=== PATIENT | female | born 1945 ===

== ENCOUNTER 2016-12-25 18:09 | Observation (INO) | payer OTHER ==
[2016-12-25 18:15] VITALS: BMI 28.1
[2016-12-25] MEDS ORDERED: Sodium Chloride 0.9% 1,000 ML IV STA (18:43)
[2016-12-25 19:12] LABS: ADD MANUAL DIFF? NO
[2016-12-25 19:19] LABS: URINE BILIRUBIN NEGATIVE (NEGATIVE); URINE BLOOD NEGATIVE (NEGATIVE); URINE GLUCOSE (UA) NEGATIVE (NEGATIVE); URINE KETONE NEGATIVE (NEGATIVE); URINE LEUKOCYTE ESTERASE NEGATIVE Leu/uL (NEGATIVE); URINE PROTEIN NEGATIVE mg/dL (<30 mg/dL); URINE UROBILINOGEN 0.2 E.U./dL (<1 E.U./dL)
[2016-12-25] MEDS ORDERED: Iohexol 350 MG/100 ML VIAL ONE (19:21)
[2016-12-25] MEDS ORDERED: Iohexol 240 (50 ml) ONE (19:21)
[2016-12-25 19:23] LABS: ALB/GLOB RATIO 1.2 (1.1-1.8); ALKALINE PHOSPHATASE 48 U/L (38-133); ALT/SGPT 25 U/L (7-56); AMYLASE 95 U/L (35-125); AST/SGOT 31 U/L (15-39); BILIRUBIN,TOTAL 0.3 mg/dL (0.2-1.3); BLOOD UREA NITROGEN 15 mg/dL (7-21); CALCIUM 9.4 mg/dL (8.4-10.5); CARBON DIOXIDE 24 mmol/L (21-33); CHLORIDE 95 mmol/L (98-107); GFR AFRICAN-AMERICAN > 60; GLUCOSE,RANDOM 92 mg/dL (70-110); LIPASE 46 U/L (23-300); POTASSIUM 4.4 mmol/L (3.6-5.0); SODIUM 125 mmol/L (132-148); URINE APPEARANCE CLEAR (CLEAR); URINE COLOR YELLOW (YELLOW)
[2016-12-25 19:24] LABS: BASO # 0.02 K/mm3 (0.0-2.0); BASO % 0.2 % (0.0-3.0); EOS # 0.1 (0.0-0.7); EOS % 1.2 % (1.5-5.0); GRAN # 4.94 (1.4-6.5); GRAN % 59.5 % (50.0-68.0); HEMATOCRIT 35.8 % (36.0-48.0); LYMPH # 2.4 (1.2-3.4); LYMPH % 29.3 % (22.0-35.0); MEAN CORPUSCULAR HGB CONC 35.2 g/dl (31.0-37.0); MEAN PLATELET VOLUME 9.3 fl (7.0-11.0); MONO # 0.8 (0.1-0.6); MONO % 9.8 % (1.0-6.0); PLATELET COUNT 275 10^3/uL (120.0-450.0); RED CELL DISTRIBUTION WIDTH 12.2 % (11.5-14.5); WHITE BLOOD COUNT 8.3 10^3/ul (4.5-11.0)
--- NOTE | 2016-12-25 20:28 | RAD ---
HISTORY: abd pain COMPARISON: Chest x-ray performed 11/18/15 TECHNIQUE: Chest, one view. FINDINGS: LUNGS: No focal consolidation. Please note that chest x-ray has limited sensitivity for the detection of pulmonary masses. PLEURA: No significant pleural effusion identified. No definite pneumothorax . CARDIOVASCULAR: Heart size appears top normal. Lead tortuous aorta. OSSEOUS STRUCTURES: Degenerative changes of the spine. VISUALIZED UPPER ABDOMEN: Elevation of the right hemidiaphragm. OTHER FINDINGS: None. IMPRESSION: No focal consolidation, significant pleural effusion, or definite pneumothorax identified. Additional findings as above.
--- NOTE | 2016-12-25 21:21 | ED PDOC ---
Arrival/HPI - General Chief Complaint: GI Problem Time Seen by Provider: 12/25/16 18:30 Historian: Patient, Family - History of Present Illness Narrative History of Present Illness (Text): 12/25/16 21:18 71-year-old female presents today with a six-day history of constipation and abdominal pain. Patient describes sharp crampy diffuse abdominal pain worsening over the past 4 days. Denies vomiting or diarrhea. No chest pain or shortness of breath. Patient states she has been taking Percocet for her knee pain. She denies fevers or chills. Denies urinary symptoms. No vaginal bleeding. No other complaints. Time/Duration: Other (6 days) Symptom Onset: Gradual Symptom Course: Intermittent Quality: Stabbing, Cramping Severity Level: 6 Past Medical History - Provider Review Nursing Documentation Reviewed: Yes - Travel History Have you recently traveled outside [place] w/in the past 3 mons?: No - Infectious Disease Hx of Infectious Diseases: None - Tetanus Immunization Tetanus Immunization: Unknown - Reproductive Menopause: Yes - Cardiac Hx Cardiac Disorders: Yes Hx Hypertension: Yes - Pulmonary Hx Respiratory Disorders: Yes Hx Asthma: Yes Hx Pneumonia: Yes - Neurological Hx Neurological Disorder: Yes Hx Dizziness: Yes Hx Migraine: Yes - HEENT Hx HEENT Disorder: No - Renal Hx Renal Disorder: No - Endocrine/Metabolic Hx Endocrine Disorders: No - Hematological/Oncological Hx Blood Disorders: No - Integumentary Hx Dermatological Disorder: No - Musculoskeletal/Rheumatological Hx Musculoskeletal Disorders: No Hx Falls: No - Gastrointestinal Hx Gastrointestinal Disorders: No - Genitourinary/Gynecological Hx Genitourinary Disorders: No - Psychiatric Hx Psychophysiologic Disorder: Yes Hx Anxiety: Yes Hx Depression: Yes Hx Substance Use: No - Surgical History Hx Section: Yes - Anesthesia Hx Anesthesia: Yes Hx Anesthesia Reactions: No Hx Malignant Hyperthermia: No - Suicidal Assessment Feels Threatened In Home Enviroment: No Family/Social History - Physician Review Nursing Documentation Reviewed: Yes Family/Social History: Unknown Family HX Smoking Status: Never Smoked Hx Alcohol Use: No Hx Substance Use: No Hx Substance Use Treatment: No Allergies/Home Meds Allergies/Adverse Reactions: Allergies No Known Allergies Allergy (Verified 12/25/16 18:15) Home Medications: Home Meds Medication Instructions Recorded Confirmed Spironolactone [Aldactone] 25 mg PO DAILY 09/02/15 12/25/16 amLODIPine [Norvasc] 10 mg PO DAILY 11/09/15 12/25/16 Review of Systems - Review of Systems Constitutional: absent: Fatigue, Fevers Respiratory: absent: SOB, Cough Cardiovascular: absent: Chest Pain, Palpitations Gastrointestinal: Abdominal Pain, Constipation. absent: Diarrhea, Nausea, Vomiting Genitourinary Female: absent: Dysuria, Frequency, Hematuria Musculoskeletal: absent: Arthralgias, Back Pain, Neck Pain Skin: absent: Rash, Pruritis Neurological: absent: Headache, Dizziness Psychiatric: absent: Anxiety, Depression Physical Exam Vital Signs Reviewed: Yes Vital Signs Temp Pulse Resp BP Pulse Ox 12/25/16 22:25 98.7 F 70 17 138/79 100 12/25/16 20:42 69 16 133/75 97 12/25/16 18:16 98.2 F 76 19 125/83 96 Temperature: Afebrile Blood Pressure: Normal Pulse: Regular Respiratory Rate: Normal Appearance: Positive for: Well-Appearing, Non-Toxic, Comfortable Pain Distress: None Mental Status: Positive for: Alert and Oriented X 3 - Systems Exam Head: Present: Atraumatic Mouth: Present: Moist Mucous Membranes Neck: Present: Normal Range of Motion Respiratory/Chest: Present: Clear to Auscultation, Good Air Exchange. No: Respiratory Distress, Accessory Muscle Use Cardiovascular: Present: Regular Rate and Rhythm, Normal S1, S2. No: Murmurs Abdomen: Present: Tenderness (minimal diffuse tenderness), Normal Bowel Sounds. No: Distention, Peritoneal Signs, Rebound, Guarding Back: Present: Normal Inspection. No: CVA Tenderness, Midline Tenderness, Paraspinal Tenderness Upper Extremity: Present: Normal ROM Lower Extremity: Present: Normal ROM Neurological: Present: GCS=15, Speech Normal Skin: Present: Warm, Dry, Normal Color. No: Rashes Psychiatric: Present: Alert, Oriented x 3 Medical Decision Making ED Course and Treatment: 12/25/16 21:22 Patient is nontoxic well appearing with stable vital signs presenting with severe abdominal pain CBC wnl CMP: NA:125 Amylase wnl Lipase wnl Urinalysis wnl cxr:FINDINGS: LUNGS: No focal consolidation. Please note that chest x-ray has limited sensitivity for the detection of pulmonary masses. PLEURA: No significant pleural effusion identified. No definite pneumothorax . CARDIOVASCULAR: Heart size appears top normal. Lead tortuous aorta. OSSEOUS STRUCTURES: Degenerative changes of the spine. VISUALIZED UPPER ABDOMEN: Elevation of the right hemidiaphragm. OTHER FINDINGS: None. IMPRESSION: No focal consolidation, significant pleural effusion, or definite pneumothorax identified. Additional findings as above. CAT scan: FINDINGS: Lower thorax: No acute findings. ABDOMEN: Liver: Unremarkable. No mass. Gallbladder and bile ducts: Unremarkable. No calcified stones. No ductal dilation. Pancreas: Unremarkable. No mass. No ductal dilation. Spleen: Unremarkable. No splenomegaly. Adrenals: Small left adrenal nodule measuring 10 mm. Kidneys and ureters: Unremarkable. No solid mass. No hydronephrosis. Stomach and bowel: Mild stool throughout the colon. No obstruction. No mucosal thickening. Appendix: A normal appendix is seen. PELVIS: Bladder: Unremarkable. No mass. Reproductive: Unremarkable as visualized. ABDOMEN and PELVIS: Intraperitoneal space: Unremarkable. No free air. No significant fluid collection. Bones/joints: Facet arthropathy of the lower lumbar spine with grade 1 anterolisthesis of L5 relative to S1. No acute fracture. No dislocation. Soft tissues: Unremarkable. Vasculature: Unremarkable. No abdominal aortic aneurysm. Lymph nodes: Unremarkable. No enlarged lymph nodes. IMPRESSION: 1. 10 mm left adrenal nodule. 2. Facet arthropathy of the lower lumbar spine with grade 1 anterolisthesis of L5 relative to S1. 3. Otherwise negative CT abdomen/pelvis. No acute process is identified. Patient reassessment: pt non toxic; pain improved; still no bowel movement. Discussed all results with patient in depth case discussed with dr. de oliveira; accepts observational status admission for hyponatremia and adrenal mass Impression: Abdominal pain, hyponatremia, adrenal mass observational status to med/surg. dr. Bhagat. - Lab Interpretations Lab Results: 12/25/16 19:05 12/25/16 19:05 Lab Results 12/25/16 19:05: Urine Color Yellow, Urine Appearance Clear, Urine pH 7.0, Ur Specific [place] <= 1.005, Urine Protein Negative, Urine Glucose (UA) Negative, Urine Ketones Negative, Urine Blood Negative, Urine Nitrate Negative, Urine Bilirubin Negative, Urine Urobilinogen 0.2, Ur Leukocyte Esterase Negative 12/25/16 19:05: WBC 8.3 D, RBC 4.07, Hgb 12.6, Hct 35.8 L, MCV 88.0, MCH 31.0, MCHC 35.2, RDW 12.2, Plt Count 275, MPV 9.3, Gran % 59.5, Lymph % (Auto) 29.3, [place] % (Auto) 9.8 H, Eos % (Auto) 1.2 L, Baso % (Auto) 0.2, Gran # 4.94, Lymph # 2.4, [place] # 0.8 H, Eos # 0.1, Baso # 0.02 12/25/16 19:05: Sodium 125 L, Potassium 4.4, Chloride 95 L, Carbon Dioxide 24, Anion Gap 10, BUN 15, Creatinine 0.8, Est GFR ( Amer) > 60, Est GFR (Non- Af Amer) > 60, Random Glucose 92, Calcium 9.4, Total Bilirubin 0.3, AST 31, ALT 25, Alkaline Phosphatase 48, Total Protein 7.0, Albumin 3.8, Globulin 3.2, Albumin/Globulin Ratio 1.2, Amylase 95, Lipase 46 - RAD Interpretation Radiology Orders: 12/25/16 18:40 CHEST PORTABLE [RAD] Stat 12/25/16 19:06 ABD PELVIS PO & IV CONTRAST [CT] Stat - Medication Orders Current Medication Orders: Discontinued Medications Sodium Chloride (Sodium Chloride 0.9%) 1,000 mls @ 999 mls/hr IV .Q1H1M STA Stop: 12/25/16 19:43 Last Admin: 12/25/16 19:25 Dose: 999 mls/hr Iohexol (Omnipaque 240 (50 Ml)) Confirm Administered Dose 100 ml .ROUTE .STK- MED ONE Stop: 12/25/16 19:22 Iohexol (Omnipaque 350 100 Ml) Confirm Administered Dose 350 mg .ROUTE .STK-MED ONE Stop: 12/25/16 19:22 Ketorolac Tromethamine (Toradol) 30 mg IVP STAT STA Stop: 12/25/16 21:18 Disposition/Present on Arrival - Present on Arrival Any Indicators Present on Arrival: No History of DVT/PE: No History of Uncontrolled Diabetes: No Urinary Catheter: No History of Decub. Ulcer: No History Surgical Site Infection Following: None - Disposition Have Diagnosis and Disposition been Completed?: Yes Diagnosis: Hyponatremia, Abdominal pain, Adrenal nodule Disposition: Transfer [facility] Disposition Time: 23:30 Patient Plan: Observation Condition: FAIR Referrals: Lashawn Vela DO [Primary Care Provider] - Follow up with primary
--- NOTE | 2016-12-25 23:35 | CP.PCM.HP ---
History of Present Illness - History of Present Illness History of Present Illness: CC: abdominal pain 68 years old upper sorbian speaking female with history of hypertension stating she was feeling like she was having abdominal pain earlier today, and was having trouble going to the bathroom. However, once in the emergency room, after given some time, she had a bowel movement and her abdominal pain got better. She denies any fevers/chills, VELA, CP, current abdominal pain, any N/V/D, dysuria/ freq/urg, or lower extremity pain/swellling, problems walking, problems with mentation, anyone noticing she was acting strangely. PMH: HTN, Asthma Allergy: NKDA Meds: Amlodipine, Spironolactone Hospitalization: 4 years ago [place] [facility] [place] Family History: denies Social History: Never smoked, does not drink, does not use drugs. Lives alone. 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 Surgical History: C/S in the past Present on Admission - Present on Admission Any Indicators Present on Admission: No History of DVT/PE: No History of Uncontrolled Diabetes: No Urinary Catheter: No Decubitus Ulcer Present: No Past Patient History - Infectious Disease Hx of Infectious Diseases: None - Tetanus Immunizations Tetanus Immunization: Unknown - Past Social History Smoking Status: Never Smoked - CARDIAC Hx Cardiac Disorders: Yes Hx Hypertension: Yes - PULMONARY Hx Respiratory Disorders: Yes Hx Asthma: Yes Hx Pneumonia: Yes - NEUROLOGICAL Hx Neurological Disorder: Yes Hx Dizziness: Yes Hx Migraine: Yes - HEENT Hx HEENT Problems: No - RENAL Hx Chronic Kidney Disease: No - ENDOCRINE/METABOLIC Hx Endocrine Disorders: No - HEMATOLOGICAL/ONCOLOGICAL Hx Blood Disorders: No - INTEGUMENTARY Hx Dermatological Problems: No - MUSCULOSKELETAL/RHEUMATOLOGICAL Hx Musculoskeletal Disorders: No Hx Falls: No - GASTROINTESTINAL Hx Gastrointestinal Disorders: No - GENITOURINARY/GYNECOLOGICAL Hx Genitourinary Disorders: No - PSYCHIATRIC Hx Psychophysiologic Disorder: Yes Hx Anxiety: Yes Hx Depression: Yes Hx Substance Use: No - SURGICAL HISTORY Hx Section: Yes - ANESTHESIA Hx Anesthesia: Yes Hx Anesthesia Reactions: No Hx Malignant Hyperthermia: No Meds Allergies/Adverse Reactions: Allergies Allergy/AdvReac Type Severity Reaction Status Date / Time No Known Allergies Allergy Verified 12/25/16 18:15 Physical Exam - Constitutional Appears: Well, Non-toxic - Head Exam Head Exam: ATRAUMATIC, NORMAL INSPECTION - Eye Exam Eye Exam: EOMI - ENT Exam ENT Exam: Mucous Membranes Moist - Neck Exam Neck exam: Positive for: Full Rom. Negative for: Lymphadenopathy - Respiratory Exam Respiratory Exam: Clear to Auscultation Bilateral, NORMAL BREATHING PATTERN. absent: Rales, Rhonchi, Wheezes - Cardiovascular Exam Cardiovascular Exam: REGULAR RHYTHM, +S1, +S2 - GI/Abdominal Exam GI & Abdominal Exam: Normal Bowel Sounds, Soft - Rectal Exam Rectal Exam: absent: Deferred - Extremities Exam Extremities exam: Positive for: full ROM, normal inspection. Negative for: calf tenderness, pedal edema - Back Exam Back exam: NORMAL INSPECTION. absent: CVA tenderness (L), CVA tenderness (R) - Neurological Exam Neurological exam: Alert, CN II-XII Intact, Oriented x3, Reflexes Normal - Psychiatric Exam Psychiatric exam: Normal Affect, Normal Mood Results - Vital Signs Recent Vital Signs: Last Vital Signs Temp 98.7 F 12/25/16 22:25 Pulse 70 12/25/16 22:25 Resp 17 12/25/16 22:25 BP 138/79 12/25/16 22:25 Pulse Ox 100 12/25/16 22:25 - Labs Result Diagrams: 12/25/16 19:05 12/25/16 19:05 Labs: Laboratory Results - last 24 hr 12/25/16 12/25/16 12/25/16 19:05 19:05 19:05 WBC 8.3 D RBC 4.07 Hgb 12.6 Hct 35.8 L MCV 88.0 MCH 31.0 MCHC 35.2 RDW 12.2 Plt Count 275 MPV 9.3 Gran % 59.5 Lymph % (Auto) 29.3 [place] % (Auto) 9.8 H Eos % (Auto) 1.2 L Baso % (Auto) 0.2 Gran # 4.94 Lymph # 2.4 [place] # 0.8 H Eos # 0.1 Baso # 0.02 Sodium 125 L Potassium 4.4 Chloride 95 L Carbon Dioxide 24 Anion Gap 10 BUN 15 Creatinine 0.8 Est GFR ( Amer) > 60 Est GFR (Non-Af Amer) > 60 Random Glucose 92 Calcium 9.4 Total Bilirubin 0.3 AST 31 ALT 25 Alkaline Phosphatase 48 Total Protein 7.0 Albumin 3.8 Globulin 3.2 Albumin/Globulin Ratio 1.2 Amylase 95 Lipase 46 Urine Color Yellow Urine Appearance Clear Urine pH 7.0 Ur Specific [place] <= 1.005 Urine Protein Negative Urine Glucose (UA) Negative Urine Ketones Negative Urine Blood Negative Urine Nitrate Negative Urine Bilirubin Negative Urine Urobilinogen 0.2 Ur Leukocyte Esterase Negative Assessment & Plan - Assessment and Plan (Free Text) Assessment: 71yo F admitted for asymptomatic hyponatremia w/ incidental mass in the left adrenal gland Hyponatremia w/ incidental adrenal mass 10 mm left adrenal nodule. -patient is on normal saline at 100ml/hr -will re-check sodium; currently asymptomatic -f/u urine 24 hour cortisol, serum cortisol -patient has history of HTN; on two medications Proph Pepcid Heart Healthy Diet SCD and OOB encouraged Case Discussed with Dr. Noreen Goodrich PGY1 Night Float Decision To Admit - Pt Status Changed To: Hospital Disposition Of: Observation - . Bed Request Type: Med/Surg Admitting Physician: Aubrey Sorto MD
[2016-12-25] MEDS ORDERED: Albuterol 0.083% Inhal Sol (2.5 mg/3 mL) UD IH PRN (23:36)
[2016-12-26 01:47] VITALS: RESP 20
[2016-12-26 08:01] LABS: ADD MANUAL DIFF? NO
[2016-12-26 08:24] LABS: ALB/GLOB RATIO 1.1 (1.1-1.8); ALKALINE PHOSPHATASE 43 U/L (38-133); ALT/SGPT 29 U/L (7-56); AST/SGOT 35 U/L (15-39); BILIRUBIN,TOTAL 0.2 mg/dL (0.2-1.3); BLOOD UREA NITROGEN 10 mg/dL (7-21); CALCIUM 8.9 mg/dL (8.4-10.5); CARBON DIOXIDE 27 mmol/L (21-33); CHLORIDE 102 mmol/L (98-107); GFR AFRICAN-AMERICAN > 60; GLUCOSE,RANDOM 84 mg/dL (70-110); POTASSIUM 3.7 mmol/L (3.6-5.0); SODIUM 135 mmol/L (132-148); TOTAL PROTEIN 6.2 g/dL (5.8-8.3)
[2016-12-26 08:26] LABS: BASO # 0.03 K/mm3 (0.0-2.0); BASO % 0.5 % (0.0-3.0); EOS # 0.1 (0.0-0.7); EOS % 2.3 % (1.5-5.0); GRAN # 2.74 (1.4-6.5); GRAN % 49.6 % (50.0-68.0); HEMATOCRIT 33.3 % (36.0-48.0); LYMPH # 1.9 (1.2-3.4); MEAN CELL VOLUME 88.1 fL (80.0-105.0); MEAN CORPUSCULAR HEMOGLOBIN 30.2 pg (25.0-35.0); MEAN CORPUSCULAR HGB CONC 34.2 g/dl (31.0-37.0); MEAN PLATELET VOLUME 9.4 fl (7.0-11.0); MONO # 0.7 (0.1-0.6); MONO % 12.6 % (1.0-6.0); PLATELET COUNT 277 10^3/uL (120.0-450.0); RED CELL DISTRIBUTION WIDTH 12.5 % (11.5-14.5); WHITE BLOOD COUNT 5.5 10^3/ul (4.5-11.0)
[2016-12-26] MEDS ORDERED: POLYETHYLENE GLYCOL 3350 17 GM/Dose PACKET PO SCH (10:00)
--- NOTE | 2016-12-26 10:29 | CT ---
PROCEDURE: CT Abdomen and Pelvis with oral and IV contrast. HISTORY: abdominal pain COMPARISON: CT abdomen without and with IV contrast performed 09/01/15 TECHNIQUE: Contiguous axial images of the abdomen and pelvis. Oral and IV contrast was administered. Coronal and Sagittal reformats generated and reviewed. Contrast dose: 100 mL Omnipaque 350 Radiation dose: Total exam DLP = 623.39 mGy-cm. This CT exam was performed using one or more of the following dose reduction techniques: Automated exposure control, adjustment of the mA and/or kV according to patient size, and/or use of iterative reconstruction technique. FINDINGS: LOWER THORAX: No visible consolidation, pleural effusion, or pneumothorax. LIVER: Unremarkable. GALLBLADDER AND BILE DUCTS: Unremarkable. PANCREAS: Unremarkable. SPLEEN: Unremarkable. ADRENALS: 10 mm left adrenal gland nodule. Right adrenal gland appears unremarkable. KIDNEYS AND URETERS: The kidneys enhance symmetrically. No hydronephrosis or obstructing renal calculus. BLADDER: The urinary bladder appears unremarkable. REPRODUCTIVE: Uterus is present. APPENDIX: The appendix appears within normal limits of caliber. No secondary signs of acute appendicitis. BOWEL: The stomach is nondistended. The bowel loops appear within normal limits of caliber without evidence of intestinal obstruction. Mild constipation. PERITONEUM: No significant free fluid. No definite free air. LYMPH NODES: No bulky lymphadenopathy identified. VASCULATURE: No aortic aneurysm. BONES: 8 mm anterolisthesis of L5 on S1. Multilevel degenerative changes. Intervertebral disc space narrowing and vacuum disc phenomenon noted at multiple levels. OTHER FINDINGS: None. IMPRESSION: 10 mm left adrenal gland nodule, indeterminate. Mild constipation. Degenerative changes. 8 mm anterolisthesis of L5 on S1. Preliminary impression was provided by virtual radiologic.
[2016-12-26 10:59] LABS: URINE APPEARANCE CLEAR (CLEAR); URINE BILIRUBIN NEGATIVE (NEGATIVE); URINE BLOOD NEGATIVE (NEGATIVE); URINE COLOR YELLOW (YELLOW); URINE GLUCOSE (UA) NEGATIVE (NEGATIVE); URINE KETONE NEGATIVE (NEGATIVE); URINE LEUKOCYTE ESTERASE NEGATIVE Leu/uL (NEGATIVE); URINE PROTEIN NEGATIVE mg/dL (<30 mg/dL); URINE UROBILINOGEN 0.2 E.U./dL (<1 E.U./dL)
--- NOTE | 2016-12-26 12:04 | CP.PCM.PN ---
<Konstantin Perez - Last Filed: 12/26/16 12:05> Subjective - Date & Time of Evaluation Date of Evaluation: 12/26/16 Time of Evaluation: 11:00 - Subjective Subjective: Pt was seen and examined at bedside. Pt has complaints of diffuse abdominal pains/discomfort. Pt denied having bm or passing flatus. No acute or adverse events overnight. Pt denied fever, chills, sob, chest pains, n/v/d or urinary symptoms. Objective - Vital Signs/Intake and Output Vital Signs (last 24 hours): Temp Pulse Resp BP Pulse Ox 97.8 F 70 20 121/76 96 12/26/16 08:01 12/26/16 08:01 12/26/16 08:01 12/26/16 08:01 12/26/16 08:01 Intake and Output: 12/26/16 12/26/16 06:59 18:59 Intake Total 720 520 Balance 720 520 - Medications Medications: Current Medications Acetaminophen (Tylenol 325mg Tab) 650 mg PO Q6H PRN PRN Reason: Fever >100.4 F Albuterol Sulfate (Albuterol 0.083% Inhal Lissa (2.5 Mg/3 Ml) Ud) 2.5 mg IH Q2H PRN PRN Reason: Shortness of Breath Docusate Sodium (Colace) 100 mg PO DAILY [facility] Last Admin: 12/26/16 10:52 Dose: 100 mg Famotidine (Pepcid) 20 mg PO BID [facility] Last Admin: 12/26/16 10:54 Dose: 20 mg Sodium Chloride (Sodium Chloride 0.9%) 1,000 mls @ 100 mls/hr IV .Q10H [facility] Ibuprofen (Motrin Tab) 600 mg PO Q6H PRN PRN Reason: Pain, Mild (1-3) Polyethylene Glycol (Miralax) 17 gm PO DAILY [facility] Last Admin: 12/26/16 10:54 Dose: 17 gm Polyethylene Glycol/Electrolytes (Golytely) 4,000 ml PO ONCE PRN PRN Reason: Constipation - Labs Labs: 12/26/16 07:00 12/26/16 07:00 - Constitutional Appears: No Acute Distress - Head Exam Head Exam: ATRAUMATIC, NORMAL INSPECTION, NORMOCEPHALIC - Eye Exam Eye Exam: EOMI, Normal appearance, PERRL Pupil Exam: NORMAL ACCOMODATION, PERRL - ENT Exam ENT Exam: Mucous Membranes Moist, Normal Exam - Neck Exam Neck Exam: Full ROM, Normal Inspection. absent: Lymphadenopathy - Respiratory Exam Respiratory Exam: Clear to Ausculation Bilateral, NORMAL BREATHING PATTERN - Cardiovascular Exam Cardiovascular Exam: REGULAR RHYTHM, +S1, +S2. absent: Murmur - GI/Abdominal Exam GI & Abdominal Exam: Distended (mildly), Soft, Normal Bowel Sounds. absent: Tenderness - Extremities Exam Extremities Exam: Full ROM, Normal Capillary Refill, Normal Inspection. absent : Joint Swelling, Pedal Edema - Back Exam Back Exam: NORMAL INSPECTION - Neurological Exam Neurological Exam: Alert, Awake, CN II-XII Intact, Normal Gait, Oriented x3 - Psychiatric Exam Psychiatric exam: Normal Affect, Normal Mood - Skin Skin Exam: Dry, Intact, Normal Color, Warm Assessment and Plan - Assessment and Plan (Free Text) Assessment: 71 F admitted for asymptomatic hyponatremia w/ incidental mass in the left adrenal gland and constipation Hyponatremia w/ incidental adrenal mass 10 mm left adrenal nodule. -patient is on normal saline at 100ml/hr -will re-check sodium; currently asymptomatic -f/u urine 24 hour cortisol, serum cortisol - Launderer Hand consulted, Dr. Helen Esparza, appreciate recs -patient has history of HTN; on two medications Constipation - miralax - oob - tolerating diet - Go lytely if needed Proph Pepcid Heart Healthy Diet SCD and OOB encouraged <Leola SUAZO,[facility] - Last Filed: 12/31/16 07:34> Objective - Vital Signs/Intake and Output Vital Signs (last 24 hours): Temp Pulse Resp BP Pulse Ox 97.9 F 74 20 124/76 94 L 12/27/16 09:17 12/27/16 09:17 12/27/16 09:17 12/27/16 11:31 12/27/16 09:17 - Labs Labs: 12/27/16 06:30 12/27/16 07:55 Attending/Attestation - Attestation I have personally seen and examined this patient.: Yes I have fully participated in the care of the patient.: Yes I have reviewed all pertinent clinical information, including history, physical exam and plan: Yes Notes (Text): 12/31/16 07:27 Patient was seen and examined with medical affairs director.History was taken with the help of design assistant. 71 yrs old female was admitted with abdominal pain due to constipation and was also found to have hyponatremia. CT abdomen and Pelvis also showed incidental adrenal nodule.Patient is already aware of her left adrenal nodule and is following with her Nephrology.Her abdominal pain was resolved once her constipation was relieved. Hyponatremia has improved. Management plan was discussed in detail with patient.Education was provided.
[2016-12-26] MEDS ORDERED: Peg-Electrolyte Oral Soln 4L (Golytely) PO ONE (15:21)
[2016-12-26] MEDS ORDERED: POLYETHYLENE GLYCOL 3350 17 GM/Dose PACKET PO PRN (16:00)
--- NOTE | 2016-12-26 18:57 | CP.PCM.PN ---
Subjective - Date & Time of Evaluation Date of Evaluation: 12/26/16 Time of Evaluation: 18:55 - Subjective Subjective: Patient has very poor veins,neeeds iv access. Objective - Vital Signs/Intake and Output Vital Signs (last 24 hours): Temp Pulse Resp BP Pulse Ox 98.3 F 72 20 151/87 H 98 12/26/16 16:35 12/26/16 16:35 12/26/16 16:35 12/26/16 16:35 12/26/16 16:35 Intake and Output: 12/26/16 12/26/16 06:59 18:59 Intake Total 720 1060 Balance 720 1060 - Medications Medications: Current Medications Acetaminophen (Tylenol 325mg Tab) 650 mg PO Q6H PRN PRN Reason: Fever >100.4 F Albuterol Sulfate (Albuterol 0.083% Inhal Lissa (2.5 Mg/3 Ml) Ud) 2.5 mg IH Q2H PRN PRN Reason: Shortness of Breath Docusate Sodium (Colace) 100 mg PO DAILY [facility] Last Admin: 12/26/16 10:52 Dose: 100 mg Famotidine (Pepcid) 20 mg PO BID [facility] Last Admin: 12/26/16 17:42 Dose: 20 mg Sodium Chloride (Sodium Chloride 0.9%) 1,000 mls @ 100 mls/hr IV .Q10H [facility] Ibuprofen (Motrin Tab) 600 mg PO Q6H PRN PRN Reason: Pain, Mild (1-3) - Labs Labs: 12/26/16 07:00 12/26/16 07:00 - Constitutional Appears: No Acute Distress Assessment and Plan - Assessment and Plan (Free Text) Assessment: Poor venous access Plan: Hep lock inserted in the R hand. # 24 angiocath used.
[2016-12-26] MEDS: Sodium Chloride 0.9% 1,000 ML IV SCH (20:47)
--- NOTE | 2016-12-26 22:08 | CARD ---
APPROVED REPORT EKG Measurement Heart [id number] <Conclusion> Normal sinus rhythm Left axis deviation Incomplete right bundle branch block Abnormal ECG
[2016-12-27] MEDS: Sodium Chloride 0.9% 1,000 ML IV SCH (05:53)
[2016-12-27 07:08] LABS: ADD MANUAL DIFF? NO
[2016-12-27 07:22] LABS: BASO # 0.03 K/mm3 (0.0-2.0); BASO % 0.5 % (0.0-3.0); EOS # 0.2 (0.0-0.7); EOS % 3.3 % (1.5-5.0); GRAN # 2.22 (1.4-6.5); GRAN % 40.2 % (50.0-68.0); LYMPH # 2.4 (1.2-3.4); LYMPH % 43.9 % (22.0-35.0); MEAN CELL VOLUME 88.5 fL (80.0-105.0); MEAN CORPUSCULAR HEMOGLOBIN 30.1 pg (25.0-35.0); MEAN CORPUSCULAR HGB CONC 34.1 g/dl (31.0-37.0); MEAN PLATELET VOLUME 9.3 fl (7.0-11.0); MONO # 0.7 (0.1-0.6); MONO % 12.1 % (1.0-6.0); PLATELET COUNT 310 10^3/uL (120.0-450.0); RED CELL DISTRIBUTION WIDTH 12.6 % (11.5-14.5); WHITE BLOOD COUNT 5.5 10^3/ul (4.5-11.0)
--- NOTE | 2016-12-27 07:59 | CON ---
DATE: 12/26/2016 HISTORY OF PRESENT ILLNESS: This is a 71-year-old female with known history presenting here wi th severe abdominal pain and constipation and is being referred now for endocrine evaluation because of an incidental finding of a left . PAST MEDICAL HISTORY: As mentioned above, history of hypertension and dyslipidemia. Apparently curr ently on spironolactone and , history of asthma. FAMILY HISTORY: No known . Positive for hypertension and heart disease. SOCIAL HISTORY: The patient has a supportive family. OBJECTIVE: GENERAL: A female, in no apparent distress. VITAL SIGNS: Blood pressure of 150/90, pulse of 80 beats per minute and regular, temperature 98, res pirations . HEENT: not possible at this time. Ears, nose and throat otherwise normal. Thyroid gland is n ormal size. . CARDIAC: . ABDOMEN: Soft with positive bowel sounds. EXTREMITIES: No peripheral edema. Pulses are +2 bilaterally. LABORATORY DATA: showed the left adrenal nodule measuring 10 mm in the left adrenal area. [place] mistries: BUN of 15, sodium 125, potassium 4.4, chloride 95, CO2 of 24, glucose , and creatinin e 0.8. ASSESSMENT: This is a 71-year-old female with abdominal pain, . She also has a so-called left adrenal incidentaloma. . Helen Esparza MD cc: [id number] TT: 12/26/2016 17:45:27 Confirmation # [id number] Dictation # [id number] dn
[2016-12-27 08:41] LABS: ALB/GLOB RATIO 1.3 (1.1-1.8); ALKALINE PHOSPHATASE 51 U/L (38-133); ALT/SGPT 32 U/L (7-56); AST/SGOT 32 U/L (15-39); BILIRUBIN,TOTAL 0.2 mg/dL (0.2-1.3); BLOOD UREA NITROGEN 9 mg/dL (7-21); CALCIUM 9.3 mg/dL (8.4-10.5); CARBON DIOXIDE 27 mmol/L (21-33); CHLORIDE 102 mmol/L (95-110); GFR AFRICAN-AMERICAN > 60; GLUCOSE,RANDOM 101 mg/dL (70-110); SODIUM 139 mmol/L (132-148)
[2016-12-27] MEDS ORDERED: Potassium Chloride 20 mEq ER Tab PO ONE (09:11)
[2016-12-27 09:18] VITALS: PULSE 74; TEMP 97.9; O2SAT 94
[2016-12-27 11:35] VITALS: BP 124/76
--- NOTE | 2016-12-27 16:41 | PN ---
DATE: 12/27/2016 ROOM: 567 This is a 71-year-old female presenting here with diffuse abdominal pain and has been referred for en docrine evaluation because of an incidental finding of an adrenal tumor or adenoma in the left adrena l gland measuring 10 mm in size as noted. She remains clinically and biochemically euadrenal at this time as noted. Her latest chemistry showed a BUN of 9, sodium 139, potassium 3.0, chloride 102, CO2 27, glucose 101 and creatinine 0.5. Her albumin level is 7.0 with a calcium level of 9.3. The TSH is 1.33. So at this time, we are most likely dealing with a nonfunctioning and benign left adrenal adenoma wit h no need for any kind of surgical intervention nor any kind of fine needle aspiration biopsy. We ar e still awaiting the reports of the hormonal profile sent out to a reference lab, which will confirm whether we are dealing with a functioning versus nonfunctioning adrenal adenoma. Helen Esparza MD cc: [phone] TT: 12/27/2016 16:41:04 Confirmation # [id number] Dictation # [id number] en
[2016-12-30 11:46] LABS: METANEPHRINES <25 pg/mL (<=57); TOTAL METANEPHRINES 98 pg/mL (<=205)
--- NOTE | 2016-12-30 15:44 | CP.PCM.DIS ---
<TamiDayo - Last Filed: 12/30/16 15:40> Provider - Provider Date of Admission: 12/25/16 23:33 Attending physician: Jacinta Bhagat MD Primary care physician: Lashawn Vela DO Time Spent in preparation of Discharge (in minutes): 35 Diagnosis - Discharge Diagnosis (1) Hyponatremia Status: Acute Hospital Course - Lab Results Lab Results: Most Recent Lab Values WBC 5.5 10^3/ul (4.5-11.0) 12/27/16 06:30 RBC 4.18 10^6/uL (3.5-6.1) 12/27/16 06:30 Hgb 12.6 gm/dL (12.0-16.0) 12/27/16 06:30 Hct 37.0 % (36.0-48.0) 12/27/16 06:30 MCV 88.5 fL (80.0-105.0) 12/27/16 06:30 MCH 30.1 pg (25.0-35.0) 12/27/16 06:30 MCHC 34.1 g/dl (31.0-37.0) 12/27/16 06:30 RDW 12.6 % (11.5-14.5) 12/27/16 06:30 Plt Count 310 10^3/uL (120.0-450.0) 12/27/16 06:30 MPV 9.3 fl (7.0-11.0) 12/27/16 06:30 Gran % 40.2 % (50.0-68.0) L 12/27/16 06:30 Lymph % (Auto) 43.9 % (22.0-35.0) H 12/27/16 06:30 Porter % (Auto) 12.1 % (1.0-6.0) H 12/27/16 06:30 Eos % (Auto) 3.3 % (1.5-5.0) 12/27/16 06:30 Baso % (Auto) 0.5 % (0.0-3.0) 12/27/16 06:30 Gran # 2.22 (1.4-6.5) 12/27/16 06:30 Lymph # 2.4 (1.2-3.4) 12/27/16 06:30 Porter # 0.7 (0.1-0.6) H 12/27/16 06:30 Eos # 0.2 (0.0-0.7) 12/27/16 06:30 Baso # 0.03 K/mm3 (0.0-2.0) 12/27/16 06:30 Sodium 139 mmol/L (132-148) 12/27/16 07:55 Potassium 3.0 mmol/L (3.6-5.0) L 12/27/16 07:55 Chloride 102 mmol/L (95-110) 12/27/16 07:55 Carbon Dioxide 27 mmol/L (21-33) 12/27/16 07:55 Anion Gap 13 (10-20) 12/27/16 07:55 BUN 9 mg/dL (7-21) 12/27/16 07:55 Creatinine 0.5 mg/dL (0.5-1.4) 12/27/16 07:55 Est GFR ( Amer) > 60 12/27/16 07:55 Est GFR (Non-Af Amer) > 60 12/27/16 07:55 Random Glucose 101 mg/dL (70-110) 12/27/16 07:55 Calcium 9.3 mg/dL (8.4-10.5) 12/27/16 07:55 Total Bilirubin 0.2 mg/dL (0.2-1.3) 12/27/16 07:55 AST 32 U/L (15-39) 12/27/16 07:55 ALT 32 U/L (7-56) 12/27/16 07:55 Alkaline Phosphatase 51 U/L (38-133) 12/27/16 07:55 Total Protein 7.0 g/dL (5.8-8.3) 12/27/16 07:55 Albumin 3.9 g/dL (3.0-4.8) 12/27/16 07:55 Globulin 3.1 gm/dL 12/27/16 07:55 Albumin/Globulin Ratio 1.3 (1.1-1.8) 12/27/16 07:55 Cholesterol 128 mg/dL (130-200) L 12/26/16 10:30 Amylase 95 U/L (35-125) 12/25/16 19:05 Lipase 46 U/L (23-300) 12/25/16 19:05 Aldosterone 17 ng/dL 12/27/16 06:30 TSH 3rd Generation 1.33 mIU/mL (0.46-4.68) 12/27/16 06:30 ACTH 13 pg/mL (6-50) 12/26/16 11:05 Plasma Metanephrine <25 pg/mL (<=57) 12/26/16 11:05 Plasma Normetanephrine 98 pg/mL (<=148) 12/26/16 11:05 Plas Total Metaneph 98 pg/mL (<=205) 12/26/16 11:05 Urine Color Yellow (YELLOW) 12/26/16 10:56 Urine Appearance Clear (CLEAR) 12/26/16 10:56 Urine pH 8.0 (4.7-8.0) 12/26/16 10:56 Ur Specific [place] 1.010 (1.005-1.035) 12/26/16 10:56 Urine Protein Negative mg/dL (<30 mg/dL) 12/26/16 10:56 Urine Glucose (UA) Negative mg/dL (NEGATIVE) 12/26/16 10:56 Urine Ketones Negative mg/dL (NEGATIVE) 12/26/16 10:56 Urine Blood Negative (NEGATIVE) 12/26/16 10:56 Urine Nitrate Negative (NEGATIVE) 12/26/16 10:56 Urine Bilirubin Negative (NEGATIVE) 12/26/16 10:56 Urine Urobilinogen 0.2 E.U./dL (<1 E.U./dL) 12/26/16 10:56 Ur Leukocyte Esterase Negative Jaz/uL (NEGATIVE) 12/26/16 10:56 - Hospital Course Hospital Course: 68 years old guatemalan speaking female with history of hypertension stating she was feeling like she was having abdominal pain earlier today, and was having trouble going to the bathroom. However, once in the emergency room, after given some time, she had a bowel movement and her abdominal pain got better. She denies any fevers/chills, VELA, CP, current abdominal pain, any N/V/D, dysuria/ freq/urg, or lower extremity pain/swellling, problems walking, problems with mentation, anyone noticing she was acting strangely. On further evaluation the patient was noted to be hyponatremic. She was admitted for treatment of this as well as for constipation. The patient was started on normal saline infusion. She was given stool softeners and laxatives relieving her constipation. On the next day of admission patient's hyponatremia resolved. On w/u for abdominal pain , incidental adrenal mass was noted. The patient was aware of this and is followed for this as an outpatient. Endocrinology was consulted - Dr. Esparza who recommended the patient continue to outpatient management. Discharge Exam - Head Exam Head Exam: ATRAUMATIC, NORMAL INSPECTION, NORMOCEPHALIC - Eye Exam Eye Exam: EOMI, PERRL - ENT Exam ENT Exam: Mucous Membranes Moist - Respiratory Exam Respiratory Exam: Clear to PA & Lateral, NORMAL BREATHING PATTERN - Cardiovascular Exam Cardiovascular Exam: REGULAR RHYTHM, +S1, +S2 - GI/Abdominal Exam GI & Abdominal Exam: Normal Bowel Sounds, Unremarkable - Extremities Exam Extremities exam: full ROM, pedal pulses present - Neurological Exam Neurological exam: Alert, CN II-XII Intact, Oriented x3 - Psychiatric Exam Psychiatric exam: Normal Affect, Normal Mood - Skin Skin Exam: Dry, Normal Color Discharge Plan - Discharge Medications Prescriptions: Docusate [Colace] 100 mg PO DAILY #30 cap - Follow Up Plan Condition: FAIR Disposition: HOME/ ROUTINE Instructions: Laxative, Stool Softeners (By mouth), Hyponatremia (GEN), Regular Diet (DC) Additional Instructions: Please see your family doctor within 5 days for further evaluation and management. You are prescribed a stool softener. Take one tablet daily. If you continue to experience symptoms contact your family doctor or return to the ER. Referrals: Lashawn Vela DO [Primary Care Provider] - <Jacinta Bhagat MD - Last Filed: 12/31/16 07:39> Provider - Provider Date of Admission: 12/25/16 23:33 Attending physician: Jacinta Bhagat MD Primary care physician: Lashawn Vela DO Hospital Course - Lab Results Lab Results: Most Recent Lab Values WBC 5.5 10^3/ul (4.5-11.0) 12/27/16 06:30 RBC 4.18 10^6/uL (3.5-6.1) 12/27/16 06:30 Hgb 12.6 gm/dL (12.0-16.0) 12/27/16 06:30 Hct 37.0 % (36.0-48.0) 12/27/16 06:30 MCV 88.5 fL (80.0-105.0) 12/27/16 06:30 MCH 30.1 pg (25.0-35.0) 12/27/16 06:30 MCHC 34.1 g/dl (31.0-37.0) 12/27/16 06:30 RDW 12.6 % (11.5-14.5) 12/27/16 06:30 Plt Count 310 10^3/uL (120.0-450.0) 12/27/16 06:30 MPV 9.3 fl (7.0-11.0) 12/27/16 06:30 Gran % 40.2 % (50.0-68.0) L 12/27/16 06:30 Lymph % (Auto) 43.9 % (22.0-35.0) H 12/27/16 06:30 Porter % (Auto) 12.1 % (1.0-6.0) H 12/27/16 06:30 Eos % (Auto) 3.3 % (1.5-5.0) 12/27/16 06:30 Baso % (Auto) 0.5 % (0.0-3.0) 12/27/16 06:30 Gran # 2.22 (1.4-6.5) 12/27/16 06:30 Lymph # 2.4 (1.2-3.4) 12/27/16 06:30 Porter # 0.7 (0.1-0.6) H 12/27/16 06:30 Eos # 0.2 (0.0-0.7) 12/27/16 06:30 Baso # 0.03 K/mm3 (0.0-2.0) 12/27/16 06:30 Sodium 139 mmol/L (132-148) 12/27/16 07:55 Potassium 3.0 mmol/L (3.6-5.0) L 12/27/16 07:55 Chloride 102 mmol/L (95-110) 12/27/16 07:55 Carbon Dioxide 27 mmol/L (21-33) 12/27/16 07:55 Anion Gap 13 (10-20) 12/27/16 07:55 BUN 9 mg/dL (7-21) 12/27/16 07:55 Creatinine 0.5 mg/dL (0.5-1.4) 12/27/16 07:55 Est GFR ( Amer) > 60 12/27/16 07:55 Est GFR (Non-Af Amer) > 60 12/27/16 07:55 Random Glucose 101 mg/dL (70-110) 12/27/16 07:55 Calcium 9.3 mg/dL (8.4-10.5) 12/27/16 07:55 Total Bilirubin 0.2 mg/dL (0.2-1.3) 12/27/16 07:55 AST 32 U/L (15-39) 12/27/16 07:55 ALT 32 U/L (7-56) 12/27/16 07:55 Alkaline Phosphatase 51 U/L (38-133) 12/27/16 07:55 Total Protein 7.0 g/dL (5.8-8.3) 12/27/16 07:55 Albumin 3.9 g/dL (3.0-4.8) 12/27/16 07:55 Globulin 3.1 gm/dL 12/27/16 07:55 Albumin/Globulin Ratio 1.3 (1.1-1.8) 12/27/16 07:55 Cholesterol 128 mg/dL (130-200) L 12/26/16 10:30 Amylase 95 U/L (35-125) 12/25/16 19:05 Lipase 46 U/L (23-300) 12/25/16 19:05 Renin 0.65 ng/mL/h (0.25-5.82) 12/27/16 06:30 Aldosterone 17 ng/dL 12/27/16 06:30 Aldosterone/Renin Ratio 26.2 Ratio (0.9-28.9) 12/27/16 06:30 TSH 3rd Generation 1.33 mIU/mL (0.46-4.68) 12/27/16 06:30 ACTH 13 pg/mL (6-50) 12/26/16 11:05 Plasma Metanephrine <25 pg/mL (<=57) 12/26/16 11:05 Plasma Normetanephrine 98 pg/mL (<=148) 12/26/16 11:05 Plas Total Metaneph 98 pg/mL (<=205) 12/26/16 11:05 Urine Color Yellow (YELLOW) 12/26/16 10:56 Urine Appearance Clear (CLEAR) 12/26/16 10:56 Urine pH 8.0 (4.7-8.0) 12/26/16 10:56 Ur Specific [place] 1.010 (1.005-1.035) 12/26/16 10:56 Urine Protein Negative mg/dL (<30 mg/dL) 12/26/16 10:56 Urine Glucose (UA) Negative mg/dL (NEGATIVE) 12/26/16 10:56 Urine Ketones Negative mg/dL (NEGATIVE) 12/26/16 10:56 Urine Blood Negative (NEGATIVE) 12/26/16 10:56 Urine Nitrate Negative (NEGATIVE) 12/26/16 10:56 Urine Bilirubin Negative (NEGATIVE) 12/26/16 10:56 Urine Urobilinogen 0.2 E.U./dL (<1 E.U./dL) 12/26/16 10:56 Ur Leukocyte Esterase Negative Jaz/uL (NEGATIVE) 12/26/16 10:56 Attending/Attestation - Attestation I have personally seen and examined this patient.: Yes I have fully participated in the care of the patient.: Yes I have reviewed all pertinent clinical information, including history, physical exam and plan: Yes Notes (Text): 12/31/16 07:36 Patient was seen and examined with medical manager.History was taken with the help of video game animator. 71 yrs old female was admitted with abdominal pain due to constipation and was also found to have hyponatremia. CT abdomen and Pelvis also showed incidental adrenal nodule.Patient is already aware of her left adrenal nodule and is following with her Nephrology.Her abdominal pain was resolved once her constipation was relieved. Hyponatremia has improved. Patient was also evaluated by endocrinology , will follow up with endocrinology, PCP and Nephrology. Management plan was discussed in detail with patient.Education was provided.
[2016-12-30 17:55] LABS: ALDO/PRA RATIO 26.2 Ratio (0.9-28.9)
== END 2016-12-27 14:11 | disposition home or self-care (01) ==
LOC: ED 18:09 → ERH 23:33 → 5RNO 12-26 01:32
PROVIDERS: ADMIT Internal Medicine; ATTEND Internal Medicine
DX: E87.1 Hypo-osmolality and hyponatremia (principal); D35.02 Benign neoplasm of left adrenal gland; R10.9 Unspecified abdominal pain; E78.5 Hyperlipidemia, unspecified; I10 Essential (primary) hypertension; J45.909 Unspecified asthma, uncomplicated; K59.00 Constipation, unspecified; M43.16 Spondylolisthesis, lumbar region; M46.90 Unspecified inflammatory spondylopathy, site unspecified; Z79.899 Other long term (current) drug therapy; Z82.49 Family history of ischemic heart disease and other diseases of the circulatory system; Z87.01 Personal history of pneumonia (recurrent); G43.909 Migraine, unspecified, not intractable, without status migrainosus; R42 Dizziness and giddiness; F41.9 Anxiety disorder, unspecified; F32.89 Other specified depressive episodes; R40.2412 Glasgow coma scale score 13-15, at arrival to emergency department
CPT/HCPCS: 36415; 71010; 74177; 80053; 81003; 82024; 82088; 82150; 82465; 83690; 83835; 84244; 84443; 85025; 93005; 99283; G0378; J7040; Q9966; Q9967

== ENCOUNTER 2017-02-22 14:06 | Emergency (ER) | payer OTHER ==
[2017-02-22 14:06] VITALS: BMI 28.1
[2017-02-22 14:42] VITALS: TEMP 97.9
--- NOTE | 2017-02-22 15:30 | ED PDOC ---
Arrival/HPI - General Chief Complaint: Lower Extremity Problem/Injury Time Seen by Provider: 02/22/17 14:27 Historian: Patient - History of Present Illness Narrative History of Present Illness (Text): 02/22/17 71 yo female, malian speaker, arrives with family member, w/PMHx of HTN, Right knee OA, come in for evaluation of Right knee pain developed since yesterday after sustained twisting injury and fell down. As per family, " she was walking at home, tripped and twisted her knee and landed onto B/L knees. She was unable to sleep last night due to pain". Otherwise, pt and family denies, head injury , LOC, syncope, headache, dizziness, visual changes, neck pain, CP, SOB, denies deformity to Right leg/knee, denies weakness, sensory or vascular deficits. Ambulate to Ed for evaluation. Past Medical History - Provider Review Nursing Documentation Reviewed: Yes - Travel History Have you recently traveled outside [place] w/in the past 3 mons?: No - Infectious Disease Hx of Infectious Diseases: None - Tetanus Immunization Tetanus Immunization: Unknown - Reproductive Menopause: No - Cardiac Hx Cardiac Disorders: Yes Hx Hypertension: Yes - Pulmonary Hx Respiratory Disorders: Yes Hx Asthma: Yes Hx Pneumonia: Yes - Neurological Hx Neurological Disorder: Yes Hx Dizziness: Yes Hx Migraine: Yes - HEENT Hx HEENT Disorder: No - Renal Hx Renal Disorder: No - Endocrine/Metabolic Hx Endocrine Disorders: No - Hematological/Oncological Hx Blood Disorders: No - Integumentary Hx Dermatological Disorder: No - Musculoskeletal/Rheumatological Hx Musculoskeletal Disorders: No Hx Falls: No - Gastrointestinal Hx Gastrointestinal Disorders: No - Genitourinary/Gynecological Hx Genitourinary Disorders: No - Psychiatric Hx Psychophysiologic Disorder: Yes Hx Anxiety: Yes Hx Depression: Yes Hx Substance Use: No - Surgical History Other/Comment: C SECTION - Anesthesia Hx Anesthesia: Yes Hx Anesthesia Reactions: No Hx Malignant Hyperthermia: No - Suicidal Assessment Feels Threatened In Home Enviroment: No Family/Social History - Physician Review Nursing Documentation Reviewed: Yes Family/Social History: No Known Family HX Smoking Status: Never Smoked Hx Alcohol Use: No Hx Substance Use: No Hx Substance Use Treatment: No Allergies/Home Meds Allergies/Adverse Reactions: Allergies No Known Allergies Allergy (Verified 12/25/16 18:15) Home Medications: Home Meds Medication Instructions Recorded Confirmed Spironolactone [Aldactone] 25 mg PO DAILY 09/02/15 12/25/16 amLODIPine [Norvasc] 10 mg PO DAILY 11/09/15 12/25/16 Review of Systems - Review of Systems Constitutional: Normal Eyes: Normal ENT: Normal Respiratory: Normal Cardiovascular: Normal Gastrointestinal: Normal Genitourinary Female: Normal Musculoskeletal: Arthralgias (Right knee pain) Skin: Normal Neurological: Normal Endocrine: Normal Hemo/Lymphatic: Normal Psychiatric: Normal Physical Exam Vital Signs Reviewed: Yes Vital Signs Temp Pulse Resp BP Pulse Ox 02/22/17 16:20 69 18 119/68 96 02/22/17 14:35 97.9 F 75 16 118/76 98 Temperature: Afebrile Blood Pressure: Normal Pulse: Regular Respiratory Rate: Normal Appearance: Positive for: Well-Appearing, Non-Toxic, Comfortable Pain Distress: Moderate Mental Status: Positive for: Alert and Oriented X 3 - Systems Exam Head: Present: Atraumatic, Normocephalic Conjunctiva: Present: Normal Neck: Present: Trachea Midline. No: MIDLINE TENDERNESS Respiratory/Chest: No: Tender to Palpation Abdomen: Present: Normal Bowel Sounds. No: Tenderness, Distention, Peritoneal Signs, Rebound, Guarding Back: No: CVA Tenderness Upper Extremity: Present: Normal ROM. No: Tenderness, Deformity Lower Extremity: Present: NORMAL PULSES, Normal ROM, Tenderness (Right knee medial and lateral aspect. No edema, no palpable deformity, no ecchymoses. Mild discomfort on FAROM due to pain. Noneurovascular deficits distally to injury.), Neurovascularly Intact, Capillary Refill < 2 s. No: Deformity Neurological: Present: GCS=15, Speech Normal, Motor Func Grossly Intact, Normal Sensory Function, Norm Deep Tendon Reflexes Skin: Present: Warm, Dry, Normal Color. No: Rashes Psychiatric: Present: Alert, Oriented x 3 Medical Decision Making ED Course and Treatment: 02/22/17 On re-evaluation, pt is afebrile, hemodynamicaly stable. Non-toxic. Ambulatory in ED with stable gait. head: AT/NC Neck: (-) midline tenderness. RLE: exam c/w knee contusion. FAROM, no neurovascular deficits. Neurologicaly intact. Imaging review and appears normal. Knee immobilizer applied to Right knee. Pt has clinical findings c/w knee contusion. Pt and family advised and ref. to f/u with Ortho in 2-3 days for re-eval. return to ED if any worsening or new changes. - RAD Interpretation Radiology Orders: 02/22/17 14:32 HIP MIN 2V W/ PELVIS RT [RAD] Stat KNEE RIGHT 2 VIEWS (AP & LAT) [RAD] Stat (+)DJD, no acute fx or dislocation - Medication Orders Current Medication Orders: Discontinued Medications Tramadol HCl (Ultram) 50 mg PO STAT STA Stop: 02/22/17 14:34 Last Admin: 02/22/17 15:02 Dose: 50 mg Re-Assess: [facility] Pain Assessment Document 02/22/17 16:02 SZA (Rec: 02/22/17 17:06 [place] [facility] [place] [facility] [id number] Pain Reassessment Is this a pain reassessment? No Sleep Is patient sleeping during reassessment? No Presence of Pain Presence of Pain Yes Pain Scale Used Pain Scale Used Numeric Description Intensity of Pain at present 3 Disposition/Present on Arrival - Present on Arrival Any Indicators Present on Arrival: No History of DVT/PE: No History of Uncontrolled Diabetes: No Urinary Catheter: No History of Decub. Ulcer: No History Surgical Site Infection Following: None - Disposition Have Diagnosis and Disposition been Completed?: Yes Diagnosis: Knee contusion Disposition: HOME/ ROUTINE Disposition Time: 15:42 Patient Plan: Discharge Condition: STABLE Discharge Instructions (ExitCare): Knee Sprain (ED) Additional Instructions: Michael wrap to Right knee Light duty to Right leg Follow up with PMD, Orto in 2-3 days for re-evaluation. Return to ED if any worsening or new changes. Prescriptions: oxyCODONE/Acetaminophen [Percocet 5/325 mg Tab] 1 tab PO HS PRN #7 tab PRN Reason: Pain traMADol [Ultram] 50 mg PO TID #10 tab Referrals: Lashawn Vela DO [Primary Care Provider] - Follow up with primary Memo Agosto MD [Staff Provider] - Follow up with primary Forms: [employer] (Swedish)
[2017-02-22 16:20] VITALS: BP 119/68; PULSE 69; RESP 18; O2SAT 96
--- NOTE | 2017-02-22 17:16 | RAD ---
PROCEDURE: Right Hip Radiographs. HISTORY: injury COMPARISON: None. FINDINGS: BONES: The pelvic ring is intact. There is no acute displaced fracture or bone destruction. Bone mineralization is normal. JOINTS: There is mild degenerative osteoarthrosis in the hip joints with reduced joint spaces and marginal osteophytes. SOFT TISSUES: Normal. OTHER FINDINGS: None. IMPRESSION: No acute displaced fracture or dislocation. Mild degenerative osteoarthrosis in the hip joints.
--- NOTE | 2017-02-22 17:16 | RAD ---
PROCEDURE: Right Knee Radiographs. HISTORY: injury COMPARISON: None. FINDINGS: BONES: No evidence of acute displaced fracture nor dislocation. The osseous structures intact. JOINTS: Tricompartmental degenerative osteoarthritis. JOINT EFFUSION: Suspect trace suprapatellar joint effusion. Note made of small calcifications in the anterior suprapatellar soft tissues which could represent bursal calcification OTHER FINDINGS: None. IMPRESSION: No evidence of acute displaced fracture nor dislocation. Mild DJD.
== END 2017-02-22 16:33 | disposition home or self-care (01) ==
LOC: ED 14:06
DX: S80.01XA Contusion of right knee, initial encounter (principal); W01.0XXA Fall on same level from slipping, tripping and stumbling without subsequent striking against object, initial encounter; Y93.01 Activity, walking, marching and hiking; Y92.009 Unspecified place in unspecified non-institutional (private) residence as the place of occurrence of the external cause

== ENCOUNTER 2017-02-26 18:05 | Emergency (ER) | payer OTHER ==
[2017-02-26 18:30] VITALS: BMI 26.3
[2017-02-26 18:38] VITALS: BP 138/86
--- NOTE | 2017-02-26 20:22 | ED PDOC ---
Arrival/HPI - General Chief Complaint: Lower Extremity Problem/Injury Time Seen by Provider: 02/26/17 19:05 Historian: Patient - History of Present Illness Narrative History of Present Illness (Text): 02/26/17 20:19 A 71 year old female, who denies any significant past medical history, presents to the emergency department for right sided knee pain. The patient states 6 days ago she fell and twisted her right knee. 5 days ago she went to the emergency department and was sent to an orthopedic. The patient states she went to an orthopedic, but still has pain. The patient denies any fever, headache, vision changes, hearing changes, nausea, abdominal pain, chest pain, shortness of breath, or any other complaints at this time. Time/Duration: < week (5 days) Symptom Course: Unchanged Activities at Onset: Light Context: Home Past Medical History - Provider Review Nursing Documentation Reviewed: Yes - Infectious Disease Hx of Infectious Diseases: None - Tetanus Immunization Tetanus Immunization: Unknown - Reproductive Menopause: Yes - Cardiac Hx Cardiac Disorders: Yes Hx Hypertension: Yes - Pulmonary Hx Respiratory Disorders: Yes Hx Asthma: Yes Hx Pneumonia: Yes - Neurological Hx Neurological Disorder: Yes Hx Dizziness: Yes Hx Migraine: Yes - HEENT Hx HEENT Disorder: No - Renal Hx Renal Disorder: No - Endocrine/Metabolic Hx Endocrine Disorders: No - Hematological/Oncological Hx Blood Disorders: No - Integumentary Hx Dermatological Disorder: No - Musculoskeletal/Rheumatological Hx Musculoskeletal Disorders: No Hx Falls: No - Gastrointestinal Hx Gastrointestinal Disorders: No - Genitourinary/Gynecological Hx Genitourinary Disorders: No - Psychiatric Hx Psychophysiologic Disorder: Yes Hx Anxiety: Yes Hx Depression: Yes Hx Substance Use: No - Surgical History Other/Comment: C SECTION - Anesthesia Hx Anesthesia: Yes Hx Anesthesia Reactions: No Hx Malignant Hyperthermia: No - Suicidal Assessment Feels Threatened In Home Enviroment: No Family/Social History - Physician Review Nursing Documentation Reviewed: Yes Family/Social History: No Known Family HX Smoking Status: Never Smoked Hx Alcohol Use: No Hx Substance Use: No Hx Substance Use Treatment: No Allergies/Home Meds Allergies/Adverse Reactions: Allergies No Known Allergies Allergy (Verified 12/25/16 18:15) Home Medications: Home Meds Medication Instructions Recorded Confirmed Spironolactone [Aldactone] 25 mg PO DAILY 09/02/15 02/26/17 amLODIPine [Norvasc] 10 mg PO DAILY 11/09/15 02/26/17 Review of Systems - Physician Review All systems were reviewed & negative as marked: Yes - Review of Systems Constitutional: absent: Fevers Eyes: absent: Vision Changes ENT: absent: Hearing Changes Respiratory: absent: SOB Cardiovascular: absent: Chest Pain Gastrointestinal: absent: Abdominal Pain Neurological: absent: Headache Physical Exam Vital Signs Reviewed: Yes Vital Signs Temp Pulse Resp BP Pulse Ox 02/26/17 21:36 97.9 F 79 18 99 02/26/17 18:38 18 99 02/26/17 18:06 98 F 75 16 138/86 97 Temperature: Afebrile Blood Pressure: Normal Pulse: Regular Respiratory Rate: Normal Appearance: Positive for: Well-Appearing, Non-Toxic, Comfortable Pain Distress: None Mental Status: Positive for: Alert and Oriented X 3 - Systems Exam Head: Present: Atraumatic, Normocephalic Pupils: Present: PERRL Conjunctiva: Present: Normal Mouth: Present: Moist Mucous Membranes Neck: Present: Normal Range of Motion Respiratory/Chest: Present: Clear to Auscultation, Good Air Exchange. No: Respiratory Distress, Accessory Muscle Use Cardiovascular: Present: Regular Rate and Rhythm, Normal S1, S2. No: Murmurs Abdomen: Present: Normal Bowel Sounds. No: Tenderness, Distention, Peritoneal Signs Upper Extremity: Present: Normal Inspection. No: Cyanosis, Edema Lower Extremity: Present: Normal Inspection. No: Edema Neurological: Present: GCS=15, Speech Normal Skin: Present: Warm, Dry, Normal Color. No: Rashes Psychiatric: Present: Alert, Oriented x 3, Normal Insight, Normal Concentration Medical Decision Making ED Course and Treatment: 02/26/17 20:24 Impression: A 71 year old female with right sided knee pain. Differential Diagnosis included but are not limited to: osteoarthritis Plan: -- Right Lower Extremity CT -- Toradol -- Reassess and disposition Prior Visits: Notes and results from previous visits were reviewed. On 02/22/17 patient came in complaining of right knee pain. Patient was discharged home. Progress Notes: 02/26/17 21:00 Reviewed radiology, CT Right Lower Extremity shows: Bones/joints: No acute fracture. Moderate to severe osteoarthrosis of medial compartment. Moderate to severe osteoarthrosis of patellofemoral compartment. Mild osteoarthrosis of lateral compartment. Lateral patellar tilt/subluxation. No dislocation. Small joint effusion. Few small intraarticular bodies. Soft tissues: Moderate Cloud's cyst. Mild stranding/fluid inferior to Cloud's cyst. Mild varicosities. IMPRESSION: 1. No fracture. 2. Tricompartment osteoarthritis. 3. Cloud's cyst, likely partially ruptured. 4. Incidental/non-acute findings are described above. 02/26/17 21:08 On reevaluation the patient feels better and is in no acute distress. I have discussed the results and plan with the patient, who expresses understanding. Patient given the opportunity to ask question, all questions were answered and there is agreement with the plan to discharge the patient home. Patient is stable for discharge. Patient was instructed to follow up with physician/clinic in 1-2 days or return if symptoms persist/worsen or new concerning symptoms arise. Re-evaluation Time: 21:08 Reassessment Condition: Re-examined, Improved - RAD Interpretation Radiology Orders: 02/26/17 19:10 EXT LOWER W/O CONTRAST RIGHT [CT] Stat [employer] Installer: Radiologist - Medication Orders Current Medication Orders: Discontinued Medications Ketorolac Tromethamine (Toradol) 30 mg IM ONCE ONE Stop: 02/26/17 19:12 Last Admin: 02/26/17 19:27 Dose: 30 mg - PA / INCOMING INSPECTOR / Resident Statement MD/DO has reviewed & agrees with the documentation as recorded. - Scribe Statement The provider has reviewed the documentation as recorded by the Scribe Alejandra Felix Provider Scribe Attestation: All medical record entries made by the Scribe were at my direction and personally dictated by me. I have reviewed the chart and agree that the record accurately reflects my personal performance of the history, physical exam, medical decision making, and the department course for this patient. I have also personally directed, reviewed, and agree with the discharge instructions and disposition. Disposition/Present on Arrival - Present on Arrival Any Indicators Present on Arrival: No History of DVT/PE: No History of Uncontrolled Diabetes: No Urinary Catheter: No History of Decub. Ulcer: No History Surgical Site Infection Following: None - Disposition Have Diagnosis and Disposition been Completed?: Yes Diagnosis: Osteoarthritis of knee Disposition: HOME/ ROUTINE Disposition Time: 21:09 Condition: GOOD Discharge Instructions (ExitCare): Osteoarthritis (ED) Print Language: ROMANIAN Prescriptions: Meloxicam [Mobic] 15 mg PO DAILY #10 tab Walker [Rolling Walker] 1 dev XX PRN PRN #1 dev PRN Reason: Pain, Mild (1-3) Referrals: Lashawn Vela DO [Primary Care Provider] - Follow up with primary Tim Wayne MD [Staff Provider] - Follow up with primary Forms: [employer] ([place]ian)
--- NOTE | 2017-02-26 20:58 | CT ---
EXAM: CT Right Lower Extremity Without Intravenous Contrast, Knee CLINICAL HISTORY: 71 years old, female; Pain; Knee; Right; Additional info: Rt knee pain TECHNIQUE: Axial computed tomography images of the right knee without intravenous contrast. All CT scans at this facility use one or more dose reduction techniques, viz.: automated exposure control; ma/kV adjustment per patient size (including targeted exams where dose is matched to indication; i.e. head); or iterative reconstruction technique. Coronal and sagittal reformatted images were created and reviewed. COMPARISON: MR - KNEE W/O CONTRAST RIGHT 10/05/2015 10:52:05 AM FINDINGS: Bones/joints: No acute fracture. Moderate to severe osteoarthrosis of medial compartment. Moderate to severe osteoarthrosis of patellofemoral compartment. Mild osteoarthrosis of lateral compartment. Lateral patellar tilt/subluxation. No dislocation. Small joint effusion. Few small intraarticular bodies. Soft tissues: Moderate Cloud's cyst. Mild stranding/fluid inferior to Lcoud's cyst. Mild varicosities. IMPRESSION: 1. No fracture. 2. Tricompartment osteoarthritis. 3. Cloud's cyst, likely partially ruptured. 4. Incidental/non-acute findings are described above.
[2017-02-26 21:36] VITALS: PULSE 79; TEMP 97.9
[2017-02-26 21:37] VITALS: RESP 18; O2SAT 99
== END 2017-02-26 21:37 | disposition home or self-care (01) ==
LOC: ED 18:05
DX: M17.9 Osteoarthritis of knee, unspecified (principal)
CPT/HCPCS: 73700; 96372; 99283; J1885

== ENCOUNTER 2017-10-26 17:22 | Emergency (ER) | payer MEDICAID ==
[2017-10-26 17:22] VITALS: BMI 26.3
[2017-10-26 18:50] LABS: BASO # 0.03 K/mm3 (0.0-2.0); BASO % 0.5 % (0.0-3.0); EOS # 0.1 (0.0-0.7); EOS % 1.4 % (1.5-5.0); GRAN # 3.47 (1.4-6.5); GRAN % 59.9 % (50.0-68.0); HEMOGLOBIN 10.4 g/dL (12.0-16.0); LYMPH # 1.6 (1.2-3.4); LYMPH % 27.2 % (22.0-35.0); MEAN CELL VOLUME 87.1 fl (80.0-105.0); MEAN CORPUSCULAR HEMOGLOBIN 28.7 pg (25.0-35.0); MEAN CORPUSCULAR HGB CONC 32.9 g/dl (31.0-37.0); MEAN PLATELET VOLUME 8.7 fl (7.0-11.0); MONO # 0.6 (0.1-0.6); RBC 3.63 10^6/uL (3.5-6.1); RED CELL DISTRIBUTION WIDTH 14.3 % (11.5-14.5); WHITE BLOOD COUNT 5.8 10^3/ul (4.5-11.0)
[2017-10-26 18:56] LABS: PROTHROMBIN TIME 12.5 SECONDS (9.4-12.5)
[2017-10-26 18:57] LABS: INR 1.09 (0.93-1.08); PARTIAL THROMBOPLASTIN TIME 32.6 Seconds (25.1-36.5)
--- NOTE | 2017-10-26 19:12 | ED PDOC ---
Arrival/HPI - General Chief Complaint: Lower Extremity Problem/Injury Time Seen by Provider: 10/26/17 17:41 Historian: Patient - History of Present Illness Narrative History of Present Illness (Text): 10/26/17 23:01 72 yo F with PMH of R knee OA s/p R knee arthroplasty 1 month ago, presents complaining of severe right knee pain, warmth, and swelling. She denies fever, chills, nausea, vomiting, diarrhea, constipation. Pain has been unchanged since her surgery, despite physical therapy. Pain is uncontrolled at home with PO motrin. Time/Duration: < month Symptom Course: Unchanged Quality: Throbbing Context: Walking Past Medical History - Provider Review Nursing Documentation Reviewed: Yes - Travel History Have you recently traveled outside [place] w/in the past 3 mons?: No - Past History Past History: No Previous - Infectious Disease Hx of Infectious Diseases: None - Tetanus Immunization Tetanus Immunization: Unknown - Cardiac Hx Cardiac Disorders: Yes Hx Hypertension: Yes - Pulmonary Hx Respiratory Disorders: Yes Hx Asthma: Yes Hx Pneumonia: Yes - Neurological Hx Neurological Disorder: Yes Hx Dizziness: Yes Hx Migraine: Yes - HEENT Hx HEENT Disorder: No - Renal Hx Renal Disorder: No - Endocrine/Metabolic Hx Endocrine Disorders: No - Hematological/Oncological Hx Blood Disorders: No - Integumentary Hx Dermatological Disorder: No - Musculoskeletal/Rheumatological Hx Musculoskeletal Disorders: Yes Other/Comment: R KNEE REPLACED - Gastrointestinal Hx Gastrointestinal Disorders: No - Genitourinary/Gynecological Hx Genitourinary Disorders: No - Psychiatric Hx Psychophysiologic Disorder: Yes Hx Anxiety: Yes Hx Depression: Yes Hx Substance Use: No - Surgical History Hx Orthopedic Surgery: Yes Other/Comment: C SECTION - Anesthesia Hx Anesthesia: Yes Hx Anesthesia Reactions: No Hx Malignant Hyperthermia: No - Suicidal Assessment Feels Threatened In Home Enviroment: No Family/Social History - Physician Review Nursing Documentation Reviewed: Yes Family/Social History: Unknown Family HX Smoking Status: Never Smoked Hx Alcohol Use: No Hx Substance Use: No Hx Substance Use Treatment: No Allergies/Home Meds Allergies/Adverse Reactions: Allergies No Known Allergies Allergy (Verified 10/26/17 17:31) Home Medications: Home Meds Medication Instructions Recorded Confirmed amLODIPine [Norvasc] 10 mg PO DAILY 11/09/15 10/26/17 Ibuprofen [Motrin Tab] 800 mg PO TID 10/26/17 10/26/17 Review of Systems - Review of Systems Constitutional: Normal Eyes: Normal ENT: Normal Respiratory: Normal Cardiovascular: Normal Gastrointestinal: Normal Genitourinary Female: Normal Musculoskeletal: Arthralgias, Joint Swelling Skin: Normal Neurological: Normal Endocrine: Normal Hemo/Lymphatic: Normal Psychiatric: Normal Physical Exam Vital Signs Reviewed: Yes Vital Signs Temp Pulse Resp BP Pulse Ox 10/26/17 22:15 98.2 F 77 16 138/76 99 10/26/17 20:14 98.9 F 76 16 130/76 99 10/26/17 17:27 99.0 F 115 H 17 131/88 98 Temperature: Afebrile Blood Pressure: Normal Pulse: Tachycardic Respiratory Rate: Normal Appearance: Positive for: Well-Appearing, Non-Toxic, Uncomfortable Pain Distress: Mild Mental Status: Positive for: Alert and Oriented X 3 - Systems Exam Head: Present: Atraumatic, Normocephalic Pupils: Present: PERRL Extroacular Muscles: Present: EOMI Conjunctiva: Present: Normal Mouth: Present: Moist Mucous Membranes Neck: Present: Normal Range of Motion Respiratory/Chest: Present: Clear to Auscultation, Good Air Exchange. No: Respiratory Distress, Accessory Muscle Use Cardiovascular: Present: Regular Rate and Rhythm, Normal S1, S2. No: Murmurs Abdomen: Present: Normal Bowel Sounds. No: Tenderness, Distention Upper Extremity: Present: Normal Inspection. No: Cyanosis, Edema Lower Extremity: Present: Other (Right knee incision healing, no purulence, fluctuance, bleeding, or dehiscence. Warm, mildly erythematous, slightly limited ROM. Left knee normal. Mild nonpitting edema in right leg to knee) Neurological: Present: GCS=15, CN II-XII Intact, Speech Normal Skin: Present: Warm, Dry, Normal Color Psychiatric: Present: Alert, Oriented x 3, Normal Insight, Normal Concentration Medical Decision Making ED Course and Treatment: 10/26/17 23:06 Impression: Right knee pain, h/o arthoplasty Differential Diagnosis included but are not limited to: Septic arthritis, osteoarthritis, fracture, post-surgical pain Plan: -- LE duplex to r/o DVT -- R knee XR with f/u CT scan if indeterminate -- Labs -- Tylenol for pain -- Reassess and disposition Prior Visits: Notes and results from previous visits were reviewed. Patient was last seen in the emergency department on 02/26/2017 for R knee pain. Discharged with diagnoses of OA Progress Notes: -- Pain improved with tylenol -- Patient ambulated to bathroom with mild difficulty/pain -- Labs unremarkable -- Knee XR significant for post-surgical changed, surgical cement between tibia and fibula, proximal tibial fracture, and loose bone fragments -- Knee CT significant for same. No signs of infection -- Instructed patient to follow up with orthopedic surgeon; provided her with CD of her imaging studies; she should take tylenol and motrin for pain -- Discharged to home - Lab Interpretations Lab Results: 10/26/17 18:30 10/26/17 18:30 Lab Results 10/26/17 18:30: Sodium 133, Potassium 4.6, Chloride 98, Carbon Dioxide 26, Anion Gap 14, BUN 16, Creatinine 0.9, Est GFR ( Amer) > 60, Est GFR (Non- Af Amer) > 60, Random Glucose 112 H, Calcium 10.4, Total Bilirubin < 0.1 L, AST 26, ALT 26, Alkaline Phosphatase 44, Total Protein 7.7, Albumin 4.3, Globulin 3.5, Albumin/Globulin Ratio 1.2 10/26/17 18:30: PT 12.5, INR 1.09 H, APTT 32.6 10/26/17 18:30: WBC 5.8, RBC 3.63, Hgb 10.4 L, Hct 31.6 L, MCV 87.1, MCH 28.7, MCHC 32.9, RDW 14.3, Plt Count 417, MPV 8.7, Gran % 59.9, Lymph % (Auto) 27.2, [place] % (Auto) 11.0 H, Eos % (Auto) 1.4 L, Baso % (Auto) 0.5, Gran # 3.47, Lymph # (Auto) 1.6, [place] # (Auto) 0.6, Eos # (Auto) 0.1, Baso # (Auto) 0.03 - RAD Interpretation Radiology Orders: 10/26/17 18:08 KNEE W/ & W/O CONTRAST RGHT [MRI] Stat DUPLEX LOWER EXTRM VEIN BILAT [US] Stat 10/26/17 19:12 KNEE RIGHT 2 VIEWS (AP & LAT) [RAD] Stat 10/26/17 19:58 KNEE WITHOUT CONTRAST RIGHT [CT] Stat - Medication Orders Current Medication Orders: Discontinued Medications Acetaminophen (Tylenol 325mg Tab) 975 mg PO STAT STA Stop: 10/26/17 18:17 Last Admin: 10/26/17 18:34 Dose: 975 mg MAR Pain/Vitals Document 10/26/17 18:34 MS (Rec: 10/26/17 18:35 MS [id number]) Pain Reassessment Is This A Pain ReAssessment? No Sleep Is patient sleeping during reassessment? No Presence of Pain Presence of Pain No Pain Scale Used Pain Scale Used Numeric Location Left, Right or Bilateral Right Pain Location Body Site Knee Description Intermittent Intensity 8 Pain Behavior Irritability Grasping Site Disposition/Present on Arrival - Present on Arrival Any Indicators Present on Arrival: No History of DVT/PE: No History of Uncontrolled Diabetes: No Urinary Catheter: No History of Decub. Ulcer: No History Surgical Site Infection Following: None - Disposition Have Diagnosis and Disposition been Completed?: Yes Diagnosis: Post-operative pain, History of arthroplasty of right knee Disposition: HOME/ ROUTINE Disposition Time: 23:14 Patient Plan: Discharge Condition: FAIR Discharge Instructions (ExitCare): Postoperative Pain (DC) Print Language: JAPANESE Additional Instructions: -- Follow up with your primary care doctor within 3-5 days -- Follow up with your orthopedic surgeon within one week -- Use tylenol 650mg every 6 hours, and motrin 600mg every 6 hours; can alternate between them for breakthrough pain -- Return to the ER for new or worsening concerns Referrals: Lashawn Vela DO [Primary Care Provider] - Follow up with primary Forms: [employer] (Citizen Of [place])
[2017-10-26 19:22] LABS: ALB/GLOB RATIO 1.2 (1.1-1.8); ALBUMIN 4.3 g/dL (3.0-4.8); ALT/SGPT 26 U/L (7-56); AST/SGOT 26 U/L (14-36); BLOOD UREA NITROGEN 16 mg/dL (7-21); CALCIUM 10.4 mg/dL (8.4-10.5); GFR AFRICAN-AMERICAN > 60; GFR NON-AFRICAN AMERICAN > 60
--- NOTE | 2017-10-26 20:22 | US ---
HISTORY: Leg pain and swelling. Evaluate for DVT PHYSICIAN(S): Vish Orozco MD. TECHNIQUE: Duplex sonography and color-flow Doppler with graded compression were used to evaluate the deep venous systems of both lower extremities. The exam is limited by edema. FINDINGS: The visualized deep venous systems of both lower extremities are sonographically normal and compressible. Normal wave forms and augmentation are seen. There is no sonographic evidence for deep venous thrombosis in the visualized segments of both lower extremities. IMPRESSION: No sonographic evidence for deep venous thrombosis in the visualized segments of both lower extremities.
--- NOTE | 2017-10-26 21:38 | CT ---
EXAM: CT Right Lower Extremity Without Intravenous Contrast, Knee EXAM DATE/TIME: 10/26/2017 7:58 PM CLINICAL HISTORY: The patient age is 72 years old and is female; Pain; Knee; Right; Prior surgery; Surgery date: <1 month; Surgery type: Prosthetic; Additional info: Knee pain; R/O septic prosthesis Facility exam id and description: Ct kneewocnt knee without contrast right TECHNIQUE: Axial computed tomography images of the right knee without intravenous contrast. All CT scans at this facility use one or more dose reduction techniques, viz.: automated exposure control; ma/kV adjustment per patient size (including targeted exams where dose is matched to indication; i.e. head); or iterative reconstruction technique. Coronal and sagittal reformatted images were created and reviewed. COMPARISON: DX - KNEE RIGHT 2 VIEWS (AP LAT) 2017-10-26 19:59 FINDINGS: Artifacts: Streaking artifact from surgical hardware significantly limits this study. Bones/joints: Postoperative changes are identified, consistent with a knee prosthesis with resection of the distal femur. Fractures are visualized of the tibial plateau. Mineralized loose bodies or fracture fragments are seen adjacent to the proximal tibia. There is an area of hyperdensity posterior to the proximal tibial shaft measuring 1.8 x 1.4 x 5.7 cm, concerning for postoperative cement. Artifact limits evaluation of the proximal fibula. There is a small mineralized loose body or fracture fragment adjacent to the proximal fibula. There is a band of low-density within the proximal fibula, consistent with postoperative change. Soft tissues: There is mild soft tissue swelling of the visualized lower extremity. IMPRESSION: 1. Postoperative changes are identified, consistent with a knee prosthesis with resection of the distal femur. 2. Fractures are visualized of the tibial plateau. Mineralized loose bodies or fracture fragments are seen adjacent to the proximal tibia. 3. There is an area of hyperdensity posterior to the proximal tibial shaft measuring 1.8 x 1.4 x 5.7 cm, concerning for postoperative cement. 4. Artifact limits evaluation of the proximal fibula. There is a small mineralized loose body or fracture fragment adjacent to the proximal fibula. 5. There is mild soft tissue swelling of the visualized lower extremity. 6. Incidental/non-acute findings are described above.
--- NOTE | 2017-10-26 21:47 | RAD ---
EXAM: XR Right Knee, 1 or 2 views EXAM DATE/TIME: 10/26/2017 7:12 PM CLINICAL HISTORY: The patient age is 72 years old and is female; Pain; Knee; Right; Prior surgery; Additional info: R knee pain; R/O septic prosthesis Facility exam id and description: Rad kneer knee right 2 views (ap lat) TECHNIQUE: Frontal and/or lateral views of the right knee. COMPARISON: DX - KNEE RIGHT 2 VIEWS (AP LAT) 2017-02-22 15:17 CT - KNEE WITHOUT CONTRAST RIGHT 10/26/2017 8:12:19 PM FINDINGS: Bones/joints: Postoperative changes are identified, with a right knee/distal femoral prosthesis and resection of the distal femur. There is an area of increased opacity between the proximal tibia and fibula, suggestive of postoperative cement. There is a linear lucency within the medial aspect of the proximal tibia, concerning for fracture are correlated with the CT from the same day. There is no abnormal lucency surrounding the prosthesis within the proximal tibia and visualized femur to suggest osteolysis. Multiple mineralized loose bodies are identified adjacent to the prosthesis. No dislocation. The surgical hardware is intact. Soft tissues: There is soft tissue swelling of the right lower extremity. IMPRESSION: 1. Postoperative changes are identified, with a right knee/distal femoral prosthesis and resection of the distal femur. 2. There is an area of increased opacity between the proximal tibia and fibula, suggestive of postoperative cement. 3. There is a linear lucency within the medial aspect of the proximal tibia, concerning for fracture right correlated with the CT from the same day. 4. There is soft tissue swelling of the right lower extremity. 5. Multiple mineralized loose bodies are identified adjacent to the prosthesis.
[2017-10-26 22:15] VITALS: RESP 16; O2SAT 99
[2017-10-26 22:16] VITALS: BP 138/76; PULSE 77; TEMP 98.2
== END 2017-10-26 23:30 | disposition home or self-care (01) ==
LOC: ED 17:22
DX: G89.18 Other acute postprocedural pain (principal); Z98.890 Other specified postprocedural states; I10 Essential (primary) hypertension

== ENCOUNTER 2017-11-07 13:46 | Emergency (ER) | payer MEDICAID ==
[2017-11-07 14:01] VITALS: BMI 28.1
[2017-11-07 14:39] VITALS: O2SAT 96
--- NOTE | 2017-11-07 14:45 | ED PDOC ---
Arrival/HPI - General Time Seen by Provider: 11/07/17 14:16 Historian: Patient - History of Present Illness Narrative History of Present Illness (Text): 11/07/17 14:40 72 year old male, whose PMH includes hypertension and knee surgery (August 2017), who presents to the emergency department complaining of right knee pain since last few days. Fever was noted in the emergency department. pt reports h/ o of surgery in aug. pt noted to be evaluated last week in emergency room, d/c. home. previous imaging noted to be negative. us of leg noted to be negative. No other complaints were made. 11/07/17 15:46 Past Medical History - Provider Review Nursing Documentation Reviewed: Yes - Past History Past History: No Previous - Infectious Disease Hx of Infectious Diseases: None - Tetanus Immunization Tetanus Immunization: Unknown - Cardiac Hx Cardiac Disorders: Yes Hx Hypertension: Yes - Pulmonary Hx Respiratory Disorders: Yes Hx Asthma: Yes Hx Pneumonia: Yes - Neurological Hx Neurological Disorder: Yes Hx Dizziness: Yes Hx Migraine: Yes - HEENT Hx HEENT Disorder: No - Renal Hx Renal Disorder: No - Endocrine/Metabolic Hx Endocrine Disorders: No - Hematological/Oncological Hx Blood Disorders: No - Integumentary Hx Dermatological Disorder: No - Musculoskeletal/Rheumatological Hx Musculoskeletal Disorders: Yes Other/Comment: R KNEE REPLACED - Gastrointestinal Hx Gastrointestinal Disorders: No - Genitourinary/Gynecological Hx Genitourinary Disorders: No - Psychiatric Hx Psychophysiologic Disorder: Yes Hx Anxiety: Yes Hx Depression: Yes Hx Substance Use: No - Surgical History Hx Orthopedic Surgery: Yes Other/Comment: C SECTION - Anesthesia Hx Anesthesia: Yes Hx Anesthesia Reactions: No Hx Malignant Hyperthermia: No - Suicidal Assessment Feels Threatened In Home Enviroment: No Family/Social History - Physician Review Nursing Documentation Reviewed: Yes Family/Social History: Unknown Family HX Smoking Status: Never Smoked Hx Alcohol Use: No Hx Substance Use: No Hx Substance Use Treatment: No Allergies/Home Meds Allergies/Adverse Reactions: Allergies No Known Allergies Allergy (Verified 10/26/17 17:31) Home Medications: Home Meds Medication Instructions Recorded Confirmed amLODIPine [Norvasc] 10 mg PO DAILY 11/09/15 10/26/17 Ibuprofen [Motrin Tab] 800 mg PO TID 10/26/17 10/26/17 Review of Systems - Physician Review All systems were reviewed & negative as marked: Yes - Review of Systems Constitutional: absent: Fevers Respiratory: absent: SOB Cardiovascular: absent: Chest Pain Musculoskeletal: Other (right knee pain ) Physical Exam Vital Signs Reviewed: Yes Vital Signs Temp Pulse Resp BP Pulse Ox 11/07/17 17:09 99 F 113 H 20 136/81 96 11/07/17 14:39 100.8 F H 100 H 18 125/75 96 Temperature: Febrile Blood Pressure: Normal Pulse: Tachycardic Respiratory Rate: Normal Appearance: Positive for: Well-Appearing, Non-Toxic, Comfortable Pain Distress: None Mental Status: Positive for: Alert and Oriented X 3 - Systems Exam Head: Present: Atraumatic, Normocephalic Pupils: Present: PERRL Extroacular Muscles: Present: EOMI Conjunctiva: Present: Normal Mouth: Present: Moist Mucous Membranes Respiratory/Chest: No: Respiratory Distress, Accessory Muscle Use Cardiovascular: Present: Regular Rate and Rhythm, Normal S1, S2. No: Murmurs Lower Extremity: Present: Normal ROM, Tenderness (right knee), Swelling (right knee), Erythema (right knee), Neurovascularly Intact. No: Edema, Deformity Neurological: Present: GCS=15, CN II-XII Intact, Speech Normal Skin: Present: Warm, Dry, Normal Color. No: Rashes Psychiatric: Present: Alert, Oriented x 3, Normal Insight, Normal Concentration Medical Decision Making ED Course and Treatment: 11/07/17 Impression: 72 year old female with right knee tenderness, swelling, and erythema, complaining of right knee pain. concern for septic knee vs cellulitis Plan: -- Labs -- Chest X-ray -- Urinalysis -- Reassess and disposition Progress Notes: 11/07/17 15:[address] gregory, ortho python consultant. recommends transfer for knee specialist eval case discussed with dr tatiana carmona, pt's primary ortho, agrees to transfer emergency room to emergency room case discussed with dr cobian, emergency room attending [facility] [place], accepts for transfer. - Lab Interpretations Microbiology Results: Microbiology Results 11/07/17 15:05 Blood S.aureus & Coag-Neg Staph PNA FISH - Final 11/07/17 15:05 Blood Blood Culture - Preliminary Gram Positive Cocci 11/07/17 15:05 Blood Gram Stain - Final 11/07/17 15:20 Blood Blood Culture - Preliminary Gram Positive Cocci 11/07/17 15:20 Blood Gram Stain - Final 11/07/17 16:10 Urine Urine Culture - Final No Growth (<1,000 CFU/ML) Lab Results: 11/07/17 15:05 11/07/17 15:05 Lab Results 11/07/17 15:05: C-React Prot High Sens > 15.00 H 11/07/17 15:05: PT 13.0 H, INR 1.14 H, APTT 30.2 11/07/17 15:05: WBC 16.0 H D, RBC 3.99, Hgb 11.6 L, Hct 33.5 L, MCV 84.0 D, MCH 29.1, MCHC 34.6, RDW 14.4, Plt Count 350, MPV 8.8, Gran % 91.2 H, Lymph % ( Auto) 4.7 L, Har[place] % (Auto) 3.9, Eos % (Auto) 0.1 L, Baso % (Auto) 0.1, Gran # 14.62 H, Lymph # (Auto) 0.8 L, Har[place]on # (Auto) 0.6, Eos # (Auto) 0.0, Baso # (Auto ) 0.01, Neutrophils % (Manual) 92 H, Band Neutrophils % 2, Lymphocytes % (Manual ) 4 L, Monocytes % (Manual) 2, Platelet Evaluation Normal, Hypochromasia Slight , ESR 64 H 11/07/17 15:05: Sodium 129 L, Potassium 4.5, Chloride 93 L, Carbon Dioxide 23, Anion Gap 17, BUN 18, Creatinine 0.7, Est GFR ( Amer) > 60, Est GFR (Non- Af Amer) > 60, Random Glucose 96, Calcium 10.5, Total Bilirubin 0.2, AST 25, ALT 24, Alkaline Phosphatase 44, Total Protein 8.0, Albumin 4.5, Globulin 3.6, Albumin/Globulin Ratio 1.3 - RAD Interpretation Radiology Orders: 11/07/17 14:45 CHEST ONE VIEW [RAD] Stat 11/07/17 14:46 KNEE RIGHT 2 VIEWS (AP & LAT) [RAD] Stat - Medication Orders Current Medication Orders: Discontinued Medications Acetaminophen (Tylenol 325mg Tab) 975 mg PO STAT STA Stop: 11/07/17 14:48 Last Admin: 11/07/17 15:00 Dose: 975 mg MAR Pain/Vitals Document 11/07/17 15:00 EQ (Rec: 11/07/17 15:00 EQ [id number]) Pain Reassessment Is This A Pain ReAssessment? No Sleep Is patient sleeping during reassessment? No Presence of Pain Presence of Pain Yes Ceftriaxone Sodium (Rocephin 1 Gram Ivpb) 1 gm in 100 mls @ 100 mls/hr IVPB DAILY ABDIAS PRN Reason: Protocol Last Admin: 11/07/17 15:21 Dose: 100 mls/hr eMAR Start Stop Document 11/07/17 15:21 EQ (Rec: 11/07/17 15:21 EQ [id number]) Intravenous Solution Start Date 11/07/17 Start Time 15:21 Vancomycin HCl (Vancomycin 1gm) 1 gm in 250 mls @ 167 mls/hr IVPB STAT STA PRN Reason: Protocol Stop: 11/07/17 16:26 Last Admin: 11/07/17 16:34 Dose: 167 mls/hr eMAR Start Stop Document 11/07/17 16:34 EQ (Rec: 11/07/17 16:34 EQ [id number]) Intravenous Solution Start Date 11/07/17 Start Time 16:34 Sodium Chloride (Sodium Chloride 0.9%) 500 mls @ 999 mls/hr IV .Q31M STA Stop: 11/07/17 16:15 Last Admin: 11/07/17 16:34 Dose: 999 mls/hr eMAR Start Stop Document 11/07/17 16:34 EQ (Rec: 11/07/17 16:34 EQ [id number]) Intravenous Solution Start Date 11/07/17 Start Time 16:34 Sodium Chloride (Sodium Chloride 0.9%) 1,000 mls @ 100 mls/hr IV .Q10H [facility] Last Admin: 11/07/17 17:07 Dose: 100 mls/hr eMAR Start Stop Document 11/07/17 17:07 EQ (Rec: 11/07/17 17:07 EQ [id number]) Intravenous Solution Start Date 11/07/17 Start Time 17:07 Ceftriaxone Sodium (Rocephin 1 Gram Ivpb) 1 gm in 100 mls @ 100 mls/hr IVPB STAT STA PRN Reason: Protocol Stop: 11/07/17 17:21 Last Admin: 11/07/17 17:06 Dose: Not Given Non-Admin Reason: Patient Refused eMAR Start Stop Document 11/07/17 17:06 EQ (Rec: 11/07/17 17:06 EQ [id number]) Intravenous Solution Start Date 11/07/17 Start Time 17:06 - Scribe Statement The provider has reviewed the documentation as recorded by the [facility] Clarita Robertson Provider Scribe Attestation: All medical record entries made by the Scribe were at my direction and personally dictated by me. I have reviewed the chart and agree that the record accurately reflects my personal performance of the history, physical exam, medical decision making, and the department course for this patient. I have also personally directed, reviewed, and agree with the discharge instructions and disposition. Disposition/Present on Arrival - Present on Arrival Any Indicators Present on Arrival: No History of DVT/PE: No History of Uncontrolled Diabetes: No Urinary Catheter: No History Surgical Site Infection Following: None - Disposition Have Diagnosis and Disposition been Completed?: Yes Diagnosis: Cellulitis, Septic arthritis of knee Disposition: Transfer [facility] [place] Disposition Time: 05:00 Condition: FAIR Discharge Instructions (ExitCare): Cellulitis (ED) Referrals: Lashawn Vela DO [Primary Care Provider] - Follow up with primary Forms: [employer] (Uzbek)
[2017-11-07] MEDS ORDERED: Vancomycin 1gm in NS 250ml 1 GM/250 ML BAG IVPB STA (14:57)
[2017-11-07] MEDS ORDERED: cefTRIAXone 1 gm 1 GM/100 ML BAG IVPB SCH (15:00)
[2017-11-07 15:26] LABS: BASO # 0.01 K/mm3 (0.0-2.0); BASO % 0.1 % (0.0-3.0); EOS % 0.1 % (1.5-5.0); GRAN # 14.62 (1.4-6.5); GRAN % 91.2 % (50.0-68.0); HEMOGLOBIN 11.6 g/dL (12.0-16.0); LYMPH # 0.8 (1.2-3.4); LYMPH % 4.7 % (22.0-35.0); MEAN CORPUSCULAR HEMOGLOBIN 29.1 pg (25.0-35.0); MEAN CORPUSCULAR HGB CONC 34.6 g/dl (31.0-37.0); MEAN PLATELET VOLUME 8.8 fl (7.0-11.0); MONO # 0.6 (0.1-0.6); MONO % 3.9 % (1.0-6.0); PLATELET COUNT 350 10^3/uL (120.0-450.0); RBC 3.99 10^6/uL (3.5-6.1); RED CELL DISTRIBUTION WIDTH 14.4 % (11.5-14.5)
[2017-11-07 15:36] LABS: INR 1.14 (0.93-1.08); PARTIAL THROMBOPLASTIN TIME 30.2 Seconds (25.1-36.5)
[2017-11-07 15:43] LABS: ALB/GLOB RATIO 1.3 (1.1-1.8); ALBUMIN 4.5 g/dL (3.0-4.8); ALT/SGPT 24 U/L (7-56); AST/SGOT 25 U/L (14-36); BAND 2 % (0-2); BLOOD UREA NITROGEN 18 mg/dL (7-21); CALCIUM 10.5 mg/dL (8.4-10.5); GFR AFRICAN-AMERICAN > 60; GFR NON-AFRICAN AMERICAN > 60; LYMPHOCYTE 4 % (22.0-35.0); MONOCYTE 2 % (1.0-6.0); NEUTROPHIL 92 % (50.0-70.0)
[2017-11-07 15:44] LABS: HYPOCHROMIA SLIGHT; PLATELET ESTIMATE NORMAL (NORMAL)
[2017-11-07] MEDS ORDERED: Sodium Chloride 0.9% 500 ML IV STA (15:45)
[2017-11-07] MEDS ORDERED: Sodium Chloride 0.9% 1,000 ML IV SCH (16:15)
[2017-11-07] MEDS ORDERED: cefTRIAXone 1 gm 1 GM/100 ML BAG IVPB STA (16:22)
[2017-11-07 17:12] VITALS: BP 136/81; PULSE 113; RESP 20; TEMP 99
--- NOTE | 2017-11-07 18:50 | RAD ---
PROCEDURE: CHEST RADIOGRAPH, 1 VIEW HISTORY: fever COMPARISON: 12/25/2016. FINDINGS: LUNGS: The lungs are clear. PLEURA: No pneumothorax or pleural fluid seen. CARDIOVASCULAR: Normal. OSSEOUS STRUCTURES: No significant abnormalities. VISUALIZED UPPER ABDOMEN: Normal. OTHER FINDINGS: None. IMPRESSION: No active pulmonary disease.
--- NOTE | 2017-11-07 18:59 | RAD ---
PROCEDURE: Right Knee Radiographs. HISTORY: pain COMPARISON: None. FINDINGS: BONES: Status post total knee arthroplasty and processes in the distal femur. Bone alignment is normal. No evidence of loosening or hardware complications. JOINT EFFUSION: Moderate joint effusion. OTHER FINDINGS: There is diffuse periarticular soft tissue swelling. 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 No acute fracture or dislocation. No hardware complications.
== END 2017-11-07 17:10 | disposition short-term general hospital (02) ==
LOC: ED 13:46
DX: M00.9 Pyogenic arthritis, unspecified (principal); L03.115 Cellulitis of right lower limb; I10 Essential (primary) hypertension
CPT/HCPCS: 71045; 73560; 80053; 85025; 85610; 85651; 85730; 86140; 87040; 87086; 87149; 87205; 96374; 96375; 99283; J0696; J7040

== ENCOUNTER 2018-09-18 17:55 | Emergency (ER) | payer MEDICAID ==
[2018-09-18 18:19] VITALS: BMI 27.4
[2018-09-18 18:20] VITALS: RESP 18; TEMP 97.7
--- NOTE | 2018-09-18 19:29 | ED PDOC ---
Arrival/HPI - General Chief Complaint: Headache Time Seen by Provider: 09/18/18 18:53 Historian: Patient, Family - History of Present Illness Narrative History of Present Illness (Text): Patient reports frontal headache that began about 7 hours ago, with gradual onset. Denies any other neurological symptoms- no blurry vision, dizziness, extremity weakness/numbness. Triage complaint was abdominal pain, however patient denies any abdominal pain. Also denies fever, nausea, vomiting, chest pain, dyspnea. States that she feels nervous and that she was having trouble sleeping because she feels "panicky". She has a history of anxiety and depression. Denies SI/HI. Past Medical History - Provider Review Nursing Documentation Reviewed: Yes BHAVIN Report Viewed: Yes - Travel History Have you recently traveled outside [place] w/in the past 3 mons?: No - Past History Past History: No Previous - Infectious Disease Hx of Infectious Diseases: None - Tetanus Immunization Tetanus Immunization: Unknown - Reproductive Menopause: No - Cardiac Hx Cardiac Disorders: Yes Hx Hypertension: Yes - Pulmonary Hx Respiratory Disorders: Yes Hx Asthma: Yes Hx Pneumonia: Yes - Neurological Hx Neurological Disorder: Yes Hx Dizziness: Yes Hx Migraine: Yes - HEENT Hx HEENT Disorder: No - Renal Hx Renal Disorder: No - Endocrine/Metabolic Hx Endocrine Disorders: No - Hematological/Oncological Hx Blood Disorders: No - Integumentary Hx Dermatological Disorder: No - Musculoskeletal/Rheumatological Hx Musculoskeletal Disorders: Yes Other/Comment: R KNEE REPLACED - Gastrointestinal Hx Gastrointestinal Disorders: No - Genitourinary/Gynecological Hx Genitourinary Disorders: No - Psychiatric Hx Psychophysiologic Disorder: Yes Hx Anxiety: Yes Hx Depression: Yes Hx Substance Use: No - Surgical History Hx Orthopedic Surgery: Yes Other/Comment: C SECTION - Anesthesia Hx Anesthesia: Yes Hx Anesthesia Reactions: No Hx Malignant Hyperthermia: No - Suicidal Assessment Suicidal Thoughts: No Feels Threatened In Home Enviroment: No Family/Social History - Physician Review Nursing Documentation Reviewed: Yes Family/Social History: Unknown Family HX Smoking Status: Never Smoked Hx Alcohol Use: No Hx Substance Use: No Hx Substance Use Treatment: No Allergies/Home Meds Allergies/Adverse Reactions: Allergies No Known Allergies Allergy (Verified 10/26/17 17:31) Home Medications: Home Meds Medication Instructions Recorded Confirmed amLODIPine [Norvasc] 10 mg PO DAILY 11/09/15 10/26/17 Ibuprofen [Motrin Tab] 800 mg PO TID 10/26/17 10/26/17 Review of Systems - Review of Systems Constitutional: Normal Eyes: Normal Respiratory: Normal Cardiovascular: Normal Gastrointestinal: Normal Musculoskeletal: Normal Skin: Normal Neurological: Headache Endocrine: Normal Hemo/Lymphatic: Normal Psychiatric: Anxiety, Depression Physical Exam Vital Signs Reviewed: Yes Vital Signs Temp Pulse Resp BP Pulse Ox 09/18/18 18:19 97.7 F 78 18 148/79 100 Temperature: Afebrile Blood Pressure: Normal Pulse: Regular Respiratory Rate: Normal Appearance: Positive for: Well-Appearing, Non-Toxic, Comfortable Pain Distress: None Mental Status: Positive for: Alert and Oriented X 3 - Systems Exam Head: Present: Atraumatic, Normocephalic Pupils: Present: PERRL Extroacular Muscles: Present: EOMI Conjunctiva: Present: Normal Mouth: Present: Moist Mucous Membranes Respiratory/Chest: Present: Clear to Auscultation, Good Air Exchange Cardiovascular: Present: Regular Rate and Rhythm Abdomen: No: Tenderness, Rebound, Guarding Upper Extremity: Present: Normal Inspection Lower Extremity: Present: Normal Inspection Neurological: Present: GCS=15 Psychiatric: Present: Alert, Oriented x 3, Normal Affect, Anxious Medical Decision Making ED Course and Treatment: Patient given tylenol and ativan PO. On re-eval, patient reports feeling better both in terms of headache and anxiety. Advised outpatient followup with PMD. Take tylenol and motrin at home for headache. Patient denies SI/HI. - Medication Orders Current Medication Orders: Discontinued Medications Acetaminophen (Tylenol 325mg Tab) 650 mg PO STAT STA Stop: 09/18/18 19:19 Lorazepam (Ativan) 0.5 mg PO ONCE ONE; Protocol Stop: 09/18/18 19:19 Disposition/Present on Arrival - Present on Arrival Any Indicators Present on Arrival: No History of DVT/PE: No History of Uncontrolled Diabetes: No Urinary Catheter: No History of Decub. Ulcer: No History Surgical Site Infection Following: None - Disposition Have Diagnosis and Disposition been Completed?: Yes Diagnosis: Headache, Anxiety Disposition: HOME/ ROUTINE Disposition Time: 21:00 Patient Problems: Current Active Problems Problem Status Onset Anxiety Acute Headache Acute Condition: STABLE Discharge Instructions (ExitCare): Anxiety, Adult (DC), Headache, Adult (DC) Print Language: GHANAIAN Additional Instructions: CHRIS ELLIOTT, thank you for letting us take care of you today. Your provider was Maxine Kelley MD and you were treated for ABDOMINAL PAIN, HEADACHES, OVERALL WEAKNESS. The emergency medical care you received today was directed at your acute symptoms. If you were prescribed any medication, please fill it and take as directed. It may take several days for your symptoms to resolve. Return to the Emergency Department if your symptoms worsen, do not improve, or if you have any other problems. Please contact your doctor or call one of the physicians/clinics you have been referred to that are listed on the Patient Visit Information form that is included in your discharge packet. Bring any paperwork you were given at discharge with you along with any medications you are taking to your follow up visit. Our treatment cannot replace ongoing medical care by a primary care provider outside of the emergency department. Thank you for allowing the [facility] team to be part of your care today. If you had an X-Ray or CT scan: A Radiologist will review the ED reading if any change in treatment is needed we will contact you. If you had a blood, urine, or wound culture: It will take several days for the results, if any change in treatment is needed we will contact you. If you had an STI test: It will take 48 hours for the results. Please call after 1 week if you have not heard back. Referrals: Lashawn Vela DO [Primary Care Provider] - Follow up with primary Forms: [employer] (Amharic)
[2018-09-18 21:57] VITALS: BP 132/72; PULSE 72; O2SAT 99
== END 2018-09-18 21:10 | disposition home or self-care (01) ==
LOC: ED 17:55
DX: R51 Headache (principal); F41.9 Anxiety disorder, unspecified; I10 Essential (primary) hypertension